=== PATIENT | male | born 1945 | race Caucasian/White ===

== ENCOUNTER 2018-11-24 14:45 | Inpatient (IN) | payer OTHER ==
[~2018-11-24] VITALS: Ht 172.7 cm; Wt 40.0 kg
[2018-11-24] MEDS ORDERED: IV NORMAL SALINE 1000ML BAG 1,000 ML IV ONE (15:45)
[2018-11-24 15:48] LABS: BASO % 0 % (0-3); EOS % 0 % (0-3); HEMATOCRIT 51.7 % (39.0-53.0); HEMOGLOBIN 16.6 g/dL (13.0-17.5); LYMPH # 0.7 x10^3/uL (1.0-4.8); LYMPH % 6 % (24-48); MEAN CORPUSCULAR HEMOGLOBIN 31 pg (25-35); MEAN CORPUSCULAR HGB CONC 32 g/dL (31-37); MEAN CORPUSCULAR VOLUME 95 fL (79-100); MONO # 0.5 x10^3/uL (0.0-1.1); MONO % 4 % (0-9); NEUT # 10.2 x10^3uL (1.8-7.7); NEUT % 90 % (31-73); PLATELET COUNT 155 x10^3/uL (140-400); RED BLOOD COUNT 5.44 x10^6/uL (4.30-5.70); RED CELL DISTRIBUTION WIDTH 15.7 % (11.5-14.5); WHITE BLOOD COUNT 11.3 x10^3/uL (4.0-11.0)
--- NOTE | 2018-11-24 15:49 | PHYS DOC ---
Adult General Chief Complaint Chief Complaint: SHORTNESS OF BREATH HPI HPI 73-year-old male presents to ER via POV with his family for complaints of shortness of air and trouble swallowing. Patient is O2 dependent and in the past week he reports he is increasingly became more short of air. Patient's primary care physician Dr. green had called and informed this provider that patient has history of COPD and had an EGD done [address] Forde and had esophageal stretching. Patient and his family reports following that procedure patient developed some swelling around his trachea and patient has had increased diff iculty swallowing. Over the past several days patient has been unable to drink ensure per his sister who is at bedside. Patient's primary care physician reported patient was seen at his office 2 weeks ago for upper respiratory infection and had been on doxycycline and prednisone. Patient states he took his last antibiotic on Thursday. Patient reports he has had intermittent cough. He denies fever. He reports he has been having less urine output and minimal stool since his appetite has been decreased. Patient denies. Patient's family reports patient has had significant weight loss since late fall. With patient's primary care physician reporting at least a 15 pound weight loss since August. As he is a daily smoker. Review of Systems Review of Systems Constitutional: Denies fever or chills. Reports generalized weakness Eyes: Denies change in visual acuity, redness, or eye pain [] HENT: Denies nasal congestion or sore throat [] Respiratory: Reports intermittent nonproductive cough and throat pain. He reports difficulty swallowing following EGD approximately 6 weeks ago which has been gradually worsening. Cardiovascular: Denies chest pain or palpitations GI: Denies abdominal pain, nausea, vomiting, bloody stools or diarrhea [] : Denies dysuria or hematuria [] Musculoskeletal: Denies back pain or joint pain [] Integument: Denies rash or skin lesions [] Neurologic: Denies headache, focal weakness or sensory changes [] Endocrine: Denies polyuria or polydipsia [] All other systems were reviewed and found to be within normal limits, except as documented in this note. Current Medications Current Medications Current Medications Medications (Trade) Dose Ordered Sig/Talya Start Time Stop Time Status Last Admin Dose Admin Sodium Chloride 1,000 ml @ 1,000 mls/hr 1X ONCE 11/24/18 15:45 11/24/18 16:44 DC 11/24/18 16:04 1,000 MLS/HR Allergies Allergies Allergies Coded Allergies Type Severity Reaction Last Updated Verified Penicillins Allergy Intermediate HIVES 11/24/18 Yes Physical Exam Physical Exam Constitutional: Frail/emaciated appearance, no acute distress, non-toxic appearance. Difficult to understand patient as his voice is muffled. Patient is answering questions appropriately HENT: Normocephalic, atraumatic, bilateral ears normal, his membranes pale and dry, no oral exudates- no pharyngeal swelling, nose normal. [] Eyes: PERRLA, no nystagmus, conjunctiva normal, no discharge. [] Neck: Normal range of motion Cardiovascular: Heart rate regular rhythm, no murmur [] Lungs & Thorax: Bilateral breath sounds clear to auscultation and upper bilateral lobes. Patient has diminished air movement throughout all lung romero with less movement in bases. Respirations are equal and nonlabored. Patient is on oxygen via nasal cannula at time of arrival. Abdomen: Bowel sounds hypoactive, soft, no tenderness, no masses, no pulsatile masses. [] Skin: Warm, cool, no erythema, no rash. [] Back: No tenderness, no CVA tenderness. [] Extremities: No tenderness, no cyanosis, no clubbing, ROM intact- slow purposeful movements, no edema. [] Neurologic: Alert and oriented X 3, normal motor function, normal sensory function, no focal deficits noted. [] Psychologic: Affect normal, judgement normal, mood normal. [] Current Patient Data Vital Signs Vital Signs Date Time Temp Pulse Resp B/P (MAP) Pulse Ox O2 Delivery O2 Flow Rate FiO2 11/24/18 17:00 86 155/78 (103) 100 Nasal Cannula 1.5 11/24/18 14:45 97.7 36 97.7 Lab Values Laboratory Tests Test 11/24/18 15:05 White Blood Count 11.3 x10^3/uL (4.0-11.0) H Red Blood Count 5.44 x10^6/uL (4.30-5.70) Hemoglobin 16.6 g/dL (13.0-17.5) Hematocrit 51.7 % (39.0-53.0) Mean Corpuscular Volume 95 fL (79-100) Mean Corpuscular Hemoglobin 31 pg (25-35) Mean Corpuscular Hemoglobin Concent 32 g/dL (31-37) Red Cell Distribution Width 15.7 % (11.5-14.5) H Platelet Count 155 x10^3/uL (140-400) Neutrophils (%) (Auto) 90 % (31-73) H Lymphocytes (%) (Auto) 6 % (24-48) L Monocytes (%) (Auto) 4 % (0-9) Eosinophils (%) (Auto) 0 % (0-3) Basophils (%) (Auto) 0 % (0-3) Neutrophils # (Auto) 10.2 x10^3uL (1.8-7.7) H Lymphocytes # (Auto) 0.7 x10^3/uL (1.0-4.8) L Monocytes # (Auto) 0.5 x10^3/uL (0.0-1.1) Eosinophils # (Auto) 0.0 x10^3/uL (0.0-0.7) Basophils # (Auto) 0.0 x10^3/uL (0.0-0.2) Segmented Neutrophils % 85 % (35-66) H Band Neutrophils % 2 % (0-9) Lymphocytes % 8 % (24-48) L Monocytes % 5 % (0-10) Platelet Estimate Adequate (ADEQUATE) Sodium Level 140 mmol/L (136-145) Potassium Level 5.0 mmol/L (3.5-5.1) Chloride Level 95 mmol/L (98-107) L Carbon Dioxide Level 40 mmol/L (21-32) H Anion Gap 5 (6-14) L Blood Urea Nitrogen 35 mg/dL (8-26) H Creatinine 1.0 mg/dL (0.7-1.3) Estimated GFR (Cockcroft-Gault) 73.2 BUN/Creatinine Ratio 35 (6-20) H Glucose Level 125 mg/dL (70-99) H Lactic Acid Level 2.9 mmol/L (0.4-2.0) H Calcium Level 13.6 mg/dL (8.5-10.1) *H Magnesium Level 2.5 mg/dL (1.8-2.4) H Total Bilirubin 0.7 mg/dL (0.2-1.0) Aspartate Amino Transferase (AST) 29 U/L (15-37) Alanine Aminotransferase (ALT) 25 U/L (16-63) Alkaline Phosphatase 105 U/L (46-116) Troponin I Quantitative 0.017 ng/mL (0.000-0.055) Total Protein 8.6 g/dL (6.4-8.2) H Albumin 3.7 g/dL (3.4-5.0) Albumin/Globulin Ratio 0.8 (1.0-1.7) L Laboratory Tests 11/24/18 15:05 Laboratory Tests 11/24/18 15:05 Microbiology 11/24/18 Blood Culture - Final, Complete NO GROWTH AFTER 5 DAYS Microbiology 11/24/18 Blood Culture - Final, Complete NO GROWTH AFTER 5 DAYS EKG EKG EKG obtained 11/24/18 at 1611 Interpreted by ER physician Sinus rhythm Rtward axis Nonspec. ST-T wave abnorm. Rate 82 No STEMI Radiology/Procedures Radiology/Procedures PROCEDURE: CHEST AP ONLY EXAM: Chest, single view. HISTORY: Shortness of air. COMPARISON: None. FINDINGS: A frontal view of the chest is obtained. There is hyperinflation and hyperlucency due to emphysema. There is blunting of the costophrenic angles likely due to large lung volumes and basilar pleural-parenchymal scarring. There is suspected superimposed left lower lobe interstitial infiltrate. There is a small ill-defined opacity overlying the left upper lobe. The heart is normal in size. IMPRESSION: 1. Suspected left lower lobe interstitial infiltrate. 2. Emphysema with suspected bilateral basilar pleural-parenchymal scarring. 3. Small opacity overlying the left upper lobe, possibly due to focal infiltrate or overlying artifact. Short-term radiographic follow-up is recommended to exclude a noncalcified nodule in this location. Electronically signed by: Denia Enrique MD (11/24/2018 3:49 PM) [place] [id number] DICTATED and SIGNED BY: DENIA ENRIQUE MD DATE: 11/24/18 1549 PROCEDURE: CT SOFT TISSUE NECK W/CONTRAST EXAM: CT neck soft tissue with contrast CLINICAL HISTORY: dysphagia s/p esophageal dilatation COMPARISON: None available. TECHNIQUE: Helical CT of the neck was performed following the administration of IV contrast. Axial coronal and sagittal reformatted images were generated. PQRS compliance statement - One or more of the following individualized dose reduction techniques were utilized for this study: 1. Automated exposure control 2. Adjustment of the mA and/or kV according to patient size 3. Use of iterative reconstruction technique FINDINGS: Exam is limited given lack of fat and diffuse soft tissue edema. Images through the skull base and cavernous sinuses are unremarkable. The orbits are unremarkable. The paranasal sinuses and mastoid air cells are unremarkable. The nasopharynx, oral pharynx and oral cavity including the floor of the mouth and tongue are unremarkable. There is diffuse soft tissue thickening of the level of the hypopharynx and larynx, most prominent level of the vocal cords, possibly from malignancy or edema. This is soft tissue swelling is eccentric to the right, extending just above the calcified thyroid cartilage. No definite extraluminal gas is identified. The parotid and submandibular glands are atrophic. The thyroid gland is unremarkable. The carotid arteries and jugular veins are patent. Given the diffuse soft tissue prominence, evaluation for lymphadenopathy is limited. Within these constraints no obvious lymphadenopathy. Multilevel degenerative changes of the spine are seen. IMPRESSION: Diffuse soft tissue thickening within the hypopharynx and larynx most prominent at the level of the vocal cords possibly from malignancy or associated edema. No extraluminal gas is seen to suggest perforation. Electronically signed by: Julius Rodriguez MD (11/24/2018 6:25 PM) [facility] DICTATED and SIGNED BY: JULIUS RODRIGUEZ MD DATE: 11/24/18 1825 PROCEDURE: CT ANGIOGRAPHY CHEST s EXAM: CT chest with contrast - pulmonary embolus protocol CLINICAL HISTORY: soa, [id number] 75ml, no priors. COMPARISON: None. TECHNIQUE: CT of the chest following the administration of intravenous contrast during the pulmonary arterial phase. Axial, coronal and sagittal reformatted images were generated including MIP images. ---PQRS compliance statement - One or more of the following individualized dose reduction techniques were utilized for this study: 1. Automated exposure control 2. Adjustment of the mA and/or kV according to patient size 3. Use of iterative reconstruction technique--- FINDINGS: CHEST: Diagnostic quality: Adequate. Pulmonary emboli: None seen Right heart strain: None Pulmonary arteries: Normal in caliber. The heart is not enlarged. No pericardial effusion. Coronary artery calcifications are seen. No pleural effusion or pneumothorax. Advanced bilateral emphysematous changes are seen. Left lower lobe airspace opacities are seen, favor infectious/odontoid process. A spiculated left upper lobe lung nodule is seen measuring 1.2 cm. A 1.4 x 1.1 cm pretracheal lymph node is seen. Bilateral prominent and borderline enlarged mediastinal and hilar lymph nodes are seen. There is opacification of the right lower lobar and segmental airways. Visualized Upper abdomen: Evaluation is limited given lack of visceral fat. In general, the visualized upper abdomen is grossly unremarkable. Bones: Evaluation of the osseous structures is limited given MIP reconstructions. Within these constraints no aggressive osseous lesion. Multilevel degenerative changes. IMPRESSION: 1. No evidence for acute pulmonary embolus. 2. Left lower lobe airspace opacities are seen, favor developing consolidative process such as pneumonia. 3. Spiculated left upper lobe lung nodule measures 1.2 cm. Recommend comparison to prior imaging if available. Otherwise this can be further assessed by PET CT if clinically indicated. 4. Advanced bilateral emphysematous changes are seen. Electronically signed by: Julius Rodriguez MD (11/24/2018 6:33 PM) [facility] DICTATED and SIGNED BY: JULIUS RODRIGUEZ MD DATE: 11/24/181832 Course & Med Decision Making Course & Med Decision Making Pertinent Labs and Imaging studies reviewed. (See chart for details) Patient was evaluated in the ER for shortness of air and difficulty swallowing. Patient is being admitted to the hospitalist services for further care and evaluation. Patient had reports of significant weight loss and reports in the past few days his shortness of air has increasingly worsened. Patient is O2 dependent with history of COPD. Patient's primary care physician had called prior to patient arriving to ER placing concerns for possible cancer with patient's symptoms and ongoing worsening of patient's condition. Chest x-ray was obtained with noted left lower lobe infiltrate. Patient had lactic acid of 2.9 WBCs were 11.3 with 2 bands. Patient's calcium was elevated at 13.6. EKG with no acute ST elevation or STEMI and troponin was <0.017. Blood cultures were obtained and patient was started on vancomycin and Levaquin while in the ER for sepsis. Patient denies any recent hospitalizations. Pt also received 1 L of fluid while in the ER and was started on maintenance IV fluids. 1710: Spoke with Dr. Davila, hospitalist and discussed pt's case and admit plan. Per his request will consult Dr. Lee with admit orders. Discussion had with patient and his family and patient is requesting DNR status with admit orders. Patient's vital signs have remained stable while in the ER pt was afebrile. CT neck results with "Diffuse soft tissue thickening within the hypopharynx and larynx most prominent at the level of the vocal cords possibly from malignancy or associated edema. No extraluminal gas is seen to suggest perforation". CTA chest neg. for PE- report of spiculated lt upper lobe lung nodule noted. CT findings were discussed with Dr. Davila. Dragon Disclaimer Dragon Disclaimer This electronic medical record was generated, in whole or in part, using a voice recognition dictation system. Departure Departure Impression: Primary Impression: Shortness of breath Additional Impressions: Weakness Sepsis Pulmonary infiltrate Disposition: ADMITTED INPATIENT Admitting Physician: Escobar Davila Condition: STABLE Referrals: AMILCAR HUANG MD (PCP) Problem Qualifiers MOISES HORNER APRN Nov 24, 2018 15:49
--- NOTE | 2018-11-24 15:52 | RAD ---
EXAM: Chest, single view. HISTORY: Shortness of air. COMPARISON: None. FINDINGS: A frontal view of the chest is obtained. There is hyperinflation and hyperlucency due to emphysema. There is blunting of the costophrenic angles likely due to large lung volumes and basilar pleural-parenchymal scarring. There is suspected superimposed left lower lobe interstitial infiltrate. There is a small ill-defined opacity overlying the left upper lobe. The heart is normal in size. IMPRESSION: 1. Suspected left lower lobe interstitial infiltrate. 2. Emphysema with suspected bilateral basilar pleural-parenchymal scarring. 3. Small opacity overlying the left upper lobe, possibly due to focal infiltrate or overlying artifact. Short-term radiographic follow-up is recommended to exclude a noncalcified nodule in this location. Electronically signed by: Denia Urban MD (11/24/2018 3:49 PM) [place] [id number]
[2018-11-24 16:05] LABS: ALBUMIN 3.7 g/dL (3.4-5.0); ALBUMIN/GLOBULIN RATIO 0.8 (1.0-1.7); GFR 73.2; MAGNESIUM 2.5 mg/dL (1.8-2.4); TOTAL BILIRUBIN 0.7 mg/dL (0.2-1.0); TOTAL PROTEIN 8.6 g/dL (6.4-8.2)
[2018-11-24 16:20] LABS: CALCIUM 13.6 mg/dL (8.5-10.1)
[2018-11-24 17:04] LABS: % BANDS 2 % (0-9); % LYMPHS 8 % (24-48); % MONOS 5 % (0-10); % SEGS 85 % (35-66)
[2018-11-24 17:05] LABS: PLT ESTIMATE ADEQUATE (ADEQUATE)
[2018-11-24] MEDS ORDERED: VANCOMYCIN 1GM IVPB FOR OMNI 250 ML IV ONE (17:30)
[2018-11-24] MEDS ORDERED: CONTRAST GIVEN. MC PRN (17:45)
[2018-11-24] MEDS ORDERED: IOHEXOL 350 MG/ML 100 ML VIAL. IV ONE (17:45)
--- NOTE | 2018-11-24 18:28 | RAD ---
EXAM: CT neck soft tissue with contrast CLINICAL HISTORY: dysphagia s/p esophageal dilatation COMPARISON: None available. TECHNIQUE: Helical CT of the neck was performed following the administration of IV contrast. Axial coronal and sagittal reformatted images were generated. PQRS compliance statement - One or more of the following individualized dose reduction techniques were utilized for this study: 1. Automated exposure control 2. Adjustment of the mA and/or kV according to patient size 3. Use of iterative reconstruction technique FINDINGS: Exam is limited given lack of fat and diffuse soft tissue edema. Images through the skull base and cavernous sinuses are unremarkable. The orbits are unremarkable. The paranasal sinuses and mastoid air cells are unremarkable. The nasopharynx, oral pharynx and oral cavity including the floor of the mouth and tongue are unremarkable. There is diffuse soft tissue thickening of the level of the hypopharynx and larynx, most prominent level of the vocal cords, possibly from malignancy or edema. This is soft tissue swelling is eccentric to the right, extending just above the calcified thyroid cartilage. No definite extraluminal gas is identified. The parotid and submandibular glands are atrophic. The thyroid gland is unremarkable. The carotid arteries and jugular veins are patent. Given the diffuse soft tissue prominence, evaluation for lymphadenopathy is limited. Within these constraints no obvious lymphadenopathy. Multilevel degenerative changes of the spine are seen. IMPRESSION: Diffuse soft tissue thickening within the hypopharynx and larynx most prominent at the level of the vocal cords possibly from malignancy or associated edema. No extraluminal gas is seen to suggest perforation. soft tissue Electronically signed by: Julius Rangel MD (11/24/2018 6:25 PM) [facility]
[2018-11-24] MEDS ORDERED: IPRATRPIUM/ALBUTEROL 0.5/2.5MG 3 ML NEBU. NEB ONE (18:30)
--- NOTE | 2018-11-24 18:36 | RAD ---
s EXAM: CT chest with contrast - pulmonary embolus protocol CLINICAL HISTORY: soa, [id number] 75ml, no priors. COMPARISON: None. TECHNIQUE: CT of the chest following the administration of intravenous contrast during the pulmonary arterial phase. Axial, coronal and sagittal reformatted images were generated including MIP images. ---PQRS compliance statement - One or more of the following individualized dose reduction techniques were utilized for this study: 1. Automated exposure control 2. Adjustment of the mA and/or kV according to patient size 3. Use of iterative reconstruction technique--- FINDINGS: CHEST: Diagnostic quality: Adequate. Pulmonary emboli: None seen Right heart strain: None Pulmonary arteries: Normal in caliber. The heart is not enlarged. No pericardial effusion. Coronary artery calcifications are seen. No pleural effusion or pneumothorax. Advanced bilateral emphysematous changes are seen. Left lower lobe airspace opacities are seen, favor infectious/odontoid process. A spiculated left upper lobe lung nodule is seen measuring 1.2 cm. A 1.4 x 1.1 cm pretracheal lymph node is seen. Bilateral prominent and borderline enlarged mediastinal and hilar lymph nodes are seen. There is opacification of the right lower lobar and segmental airways. Visualized Upper abdomen: Evaluation is limited given lack of visceral fat. In general, the visualized upper abdomen is grossly unremarkable. Bones: Evaluation of the osseous structures is limited given MIP reconstructions. Within these constraints no aggressive osseous lesion. Multilevel degenerative changes. IMPRESSION: 1. No evidence for acute pulmonary embolus. 2. Left lower lobe airspace opacities are seen, favor developing consolidative process such as pneumonia. 3. Spiculated left upper lobe lung nodule measures 1.2 cm. Recommend comparison to prior imaging if available. Otherwise this can be further assessed by PET CT if clinically indicated. 4. Advanced bilateral emphysematous changes are seen. Electronically signed by: Julius Rangel MD (11/24/2018 6:33 PM) [facility]
[2018-11-24 19:50] VITALS: BP 150/84
[2018-11-24] MEDS: IV NORMAL SALINE 1000ML BAG 1,000 ML IV SCH (20:08)
[2018-11-24] MEDS: VANCOMYCIN PER PHARMACY MC PRN (20:27)
--- NOTE | 2018-11-24 20:33 | NUR ---
Pharmacy Vancomycin Dosing Note S:Consulted to monitor and dose vancomycin started 11/24/18. O:RADHA WARREN is a 73 year old M with pneumonia. Height: 5 feet, 8 inches Weight: 38.6 kg Dosing Weight: Actual Other Antibiotics: LEVAQUIN 750 MG IV X 1 DOSE LABS: Last BUN: 35 Last Creatinine: 1.0 Creatinine Clearance: 35 mL/min Last WBC: 11.3 Last Procalcitonin: on order Tmax (past 24 hours): 97.7 Microbiology: BLOOD CX PENDING I/O: 1150/- A: Patient requires vancomycin for possible pneumonia, goal trough 15-20 mcg/ml. Patient's SCr is 1.0 with an eCrCl of 35 ml/min. Initiate the following: P: 1. Initiate Vancomycin 1000 mg IV x 1 dose, then 500 mg IV q24h 2. Follow up Trough level on 11/26/18 at 2000 3. Pharmacy will continue to monitor, follow and adjust therapy as needed. TRISTAN ADORNO [facility], 11/24/18 [id number]
--- NOTE | 2018-11-24 21:18 | HP ---
ADMIT DATE: 11/24/2018 CHIEF COMPLAINT: Throat much but neck mass, shortness of breath and weight loss. HISTORY OF PRESENT ILLNESS: The patient is a pleasant 73-year-old male who smoked up until a week ago. 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 He apparently had a procedure a month ago by Dr. Cochran of the GI service and what they did it sounds like an esophageal dilatation. Since then, he has been developing a mass on his throat. He came in today short of breath. The CAT scan of the neck shows some hypopharynx soft tissue thickening with possible malignancy. Interestingly, the CAT scan of his chest also shows a left upper lobe spiculated mass 1.2 cm and I suspect he has got underlying cancer. He does have a calcium level of 13.5, which would go along with a possible malignancy. 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 The patient has been admitted. We are going to consult Pulmonary and I am going to consult Interventional Radiology to consider a couple of biopsies if possible. PAST MEDICAL HISTORY: Tobacco abuse. ALLERGIES: PENICILLIN. FAMILY HISTORY: Lot of cancer in the family. SOCIAL HISTORY: He used to smoke. He quit a week ago. No drink or drugs. 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 MEDICATIONS: Reviewed, please refer to the MRAD. REVIEW OF SYSTEMS: GENERAL: No history of weight change, weakness or fevers. SKIN: No bruising, hair changes or rashes. EYES: No blurred, double or loss of vision. NOSE AND THROAT: No history of nosebleeds, hoarseness or sore throat. HEART: No history of palpitations, chest pain or shortness of breath on exertion. LUNGS: Denies cough, hemoptysis, wheezing or shortness of breath. GASTROINTESTINAL: Denies changes in appetite, nausea, vomiting, diarrhea or constipation. GENITOURINARY: No history of frequency, urgency, hesitancy or nocturia. NEUROLOGIC: Denies history of numbness, tingling, tremor or weakness. PSYCHIATRIC: No history of panic, anxiety or depression. ENDOCRINE: No history of heat or cold intolerance, polyuria or polydipsia. EXTREMITIES: Denies muscle weakness, joint pain, pain on walking or stiffness. PHYSICAL EXAMINATION: VITAL SIGNS: Temperature is afebrile, pulse 98, respirations 18 and blood pressure 144/90. GENERAL: He is alert and cooperative. HEART: Normal S1 and S2. LUNGS: Clear but diminished. ABDOMEN: Soft, very thin. ENDOCRINE: No thyromegaly, but he has a large mass on the anterior aspect of his pharynx. LYMPHATICS: No cervical chain nodes were noted. HEMATOPOIETIC: No bruising. PSYCHIATRIC: He seems anxious. LABORATORY DATA: White count is 11, hemoglobin 16.6 and platelets 155. Electrolytes: Sodium 140, potassium 5, chloride 95, bicarbonate 40, BUN 35, creatinine 1, glucose 125 and calcium is 13.5. RADIOLOGICAL DATA: Chest x-ray shows a left lower lobe pneumonia versus a mass, but the CT shows left upper lobe spiculated mass 1.[address] of the neck shows hypopharynx soft tissue thickening, questionable malignancy. ASSESSMENT AND PLAN: Weight loss, pharyngeal mass, lung mass, probable concomitant pneumonia and hypercalcemia. Prognosis is extremely guarded. For now, we are going to consult Pulmonary and Interventional Radiology and Heme-Onc. IV antibiotics, DuoNeb and home meds. Consult Interventional Radiology to hopefully get some tissue, IV fluids. PROGNOSIS: Extremely guarded. TOTAL TIME: Thirty-two minutes. ARIELLA HUFF DO DR: MAYCOL/shereen JOB#: [id number] / [id number]
[2018-11-24] MEDS ORDERED: IPRA4AER IH (22:10)
[2018-11-24 22:57] VITALS: BP 143/73
[2018-11-25] MEDS ORDERED: PANT20TA2 PO (01:02)
[2018-11-25] MEDS ORDERED: MULT1TAB52 PO (01:02)
[2018-11-25] MEDS ORDERED: IPRA0.2S5 NEB (01:02)
[2018-11-25] MEDS ORDERED: VITA1CAP PO (01:02)
[2018-11-25] MEDS ORDERED: ATOR10TA60 PO (01:02)
[2018-11-25 02:53] VITALS: BP 133/63
--- NOTE | 2018-11-25 04:05 | EKG ---
[facility] [address] [place] [address] Test Date: 2018-11-24 Test Time: 16:11:58 Pat Name: RADHA WARREN Department: Room: 506 1 Gender: M Stunt Woman: : 1945 Requested By: MOISES HORNER Order Number: [id number] Reading MD: Lenny Alexander MD Measurements Intervals [place] Rate: 82 P: 90 TX: 134 QRS: 98 QRSD: 102 T: 66 QT: 340 QTc: 400 Interpretive Statements SINUS RHYTHM MILD RAD PROBABLE ATRIAL ENLARGEMENT CONSIDER LVH, LIMB LEAD PLACEMENT Electronically Signed On 11-28-2018 21:57:28 CDT by Lenny Alexander MD
[2018-11-25 05:18] LABS: BASO % 0 % (0-3); EOS % 0 % (0-3); HEMOGLOBIN 13.4 g/dL (13.0-17.5); LYMPH # 0.8 x10^3/uL (1.0-4.8); LYMPH % 8 % (24-48); MEAN CORPUSCULAR HEMOGLOBIN 30 pg (25-35); MEAN CORPUSCULAR HGB CONC 32 g/dL (31-37); MEAN CORPUSCULAR VOLUME 95 fL (79-100); MONO # 0.7 x10^3/uL (0.0-1.1); MONO % 7 % (0-9); NEUT # 8.9 x10^3uL (1.8-7.7); NEUT % 85 % (31-73); PLATELET COUNT 118 x10^3/uL (140-400); RED BLOOD COUNT 4.41 x10^6/uL (4.30-5.70); RED CELL DISTRIBUTION WIDTH 15.7 % (11.5-14.5); WHITE BLOOD COUNT 10.4 x10^3/uL (4.0-11.0)
[2018-11-25] MEDS: IV NORMAL SALINE 1000ML BAG 1,000 ML IV SCH ×2 (05:18→15:40)
[2018-11-25 05:35] LABS: ALBUMIN 2.7 g/dL (3.4-5.0); ALBUMIN/GLOBULIN RATIO 0.7 (1.0-1.7); CALCIUM 11.7 mg/dL (8.5-10.1); CREATININE 0.7 mg/dL (0.7-1.3); GFR 110.5; POTASSIUM 4.2 mmol/L (3.5-5.1); TOTAL BILIRUBIN 0.5 mg/dL (0.2-1.0); TOTAL PROTEIN 6.4 g/dL (6.4-8.2)
[2018-11-25 07:00] VITALS: BP 128/67
[2018-11-25] MEDS: IPRATRPIUM/ALBUTEROL 0.5/2.5MG 3 ML NEBU. NEB SCH ×3 (07:47→16:33)
[2018-11-25 11:00] VITALS: BP 145/68
--- NOTE | 2018-11-25 12:17 | PDOC ---
Provider Note Provider Note IR NOTE Imaging reviewed. There is a small spiculated nodule in the left upper lobe. The appearance is concerning for malignancy. The patient has severe bullous emphysema. There is also an possible left lower lobe pneumonia. Also found on CT was a mass like process in the neck appearing to involve the laryx and vocal cords. I am concerned that a transthoracic biopsy would be challenging and he would be at very high risk for complications such as pneumothorax, which he may not tolerate well. Also, should the patient experience significant hemoptysis during the biopsy, which is not uncommon, airway management with this laryngeal process could be difficult. Would recommend ENT evaluation of the laryngeal process as the next step . SRAVANI JUNG MD Nov 25, 2018 12:17
--- NOTE | 2018-11-25 12:32 | NUR ---
Discussed with the patient his options regarding assessment by an ENT, patient has decided he would like to see Dr. Daly with [facility] in the clinic next week instead of transferring to [facility] at this time. This telegraphic typewriter repairer will contact Dr. Daly's office and make an appointment for the patient next week.
--- NOTE | 2018-11-25 13:04 | PDOC ---
PROGRESS NOTES Chief Complaint Chief Complaint Weight loss, malnutrition, BMI 13.5 dyphagia, pharyngeal mass, lung mass, COPD, chronic hypercarbia weakness and debility Vitals Vitals Vital Signs Date Time Temp Pulse Resp B/P (MAP) Pulse Ox O2 Delivery O2 Flow Rate FiO2 11/25/18 11:34 98 Nasal Cannula 2.0 11/25/18 11:00 97.8 72 17 145/68 (93) 97.8 Physical Exam General: Alert, Oriented X3, Cooperative, No acute distress Heart: Regular rate Lungs: Clear, Wheezing Abdomen: Soft Extremities: No clubbing, No cyanosis Skin: No rashes, No breakdown Labs LABS Laboratory Tests Test 11/24/18 15:05 11/24/18 20:50 11/25/18 03:55 White Blood Count 11.3 x10^3/uL (4.0-11.0) 10.4 x10^3/uL (4.0-11.0) Red Blood Count 5.44 x10^6/uL (4.30-5.70) 4.41 x10^6/uL (4.30-5.70) Hemoglobin 16.6 g/dL (13.0-17.5) 13.4 g/dL (13.0-17.5) Hematocrit 51.7 % (39.0-53.0) 42.0 % (39.0-53.0) Mean Corpuscular Volume 95 fL (79-100) 95 fL (79-100) Mean Corpuscular Hemoglobin 31 pg (25-35) 30 pg (25-35) Mean Corpuscular Hemoglobin Concent 32 g/dL (31-37) 32 g/dL (31-37) Red Cell Distribution Width 15.7 % (11.5-14.5) 15.7 % (11.5-14.5) Platelet Count 155 x10^3/uL (140-400) 118 x10^3/uL (140-400) Neutrophils (%) (Auto) 90 % (31-73) 85 % (31-73) Lymphocytes (%) (Auto) 6 % (24-48) 8 % (24-48) Monocytes (%) (Auto) 4 % (0-9) 7 % (0-9) Eosinophils (%) (Auto) 0 % (0-3) 0 % (0-3) Basophils (%) (Auto) 0 % (0-3) 0 % (0-3) Neutrophils # (Auto) 10.2 x10^3uL (1.8-7.7) 8.9 x10^3uL (1.8-7.7) Lymphocytes # (Auto) 0.7 x10^3/uL (1.0-4.8) 0.8 x10^3/uL (1.0-4.8) Monocytes # (Auto) 0.5 x10^3/uL (0.0-1.1) 0.7 x10^3/uL (0.0-1.1) Eosinophils # (Auto) 0.0 x10^3/uL (0.0-0.7) 0.0 x10^3/uL (0.0-0.7) Basophils # (Auto) 0.0 x10^3/uL (0.0-0.2) 0.0 x10^3/uL (0.0-0.2) Segmented Neutrophils % 85 % (35-66) Band Neutrophils % 2 % (0-9) Lymphocytes % 8 % (24-48) Monocytes % 5 % (0-10) Platelet Estimate Adequate (ADEQUATE) Sodium Level 140 mmol/L (136-145) 148 mmol/L (136-145) Potassium Level 5.0 mmol/L (3.5-5.1) 4.2 mmol/L (3.5-5.1) Chloride Level 95 mmol/L (98-107) 105 mmol/L (98-107) Carbon Dioxide Level 40 mmol/L (21-32) 41 mmol/L (21-32) Anion Gap 5 (6-14) 2 (6-14) Blood Urea Nitrogen 35 mg/dL (8-26) 28 mg/dL (8-26) Creatinine 1.0 mg/dL (0.7-1.3) 0.7 mg/dL (0.7-1.3) Estimated GFR (Cockcroft-Gault) 73.2 110.5 BUN/Creatinine Ratio 35 (6-20) 40 (6-20) Glucose Level 125 mg/dL (70-99) 76 mg/dL (70-99) Lactic Acid Level 2.9 mmol/L (0.4-2.0) 1.7 mmol/L (0.4-2.0) Calcium Level 13.6 mg/dL (8.5-10.1) 11.7 mg/dL (8.5-10.1) Magnesium Level 2.5 mg/dL (1.8-2.4) Total Bilirubin 0.7 mg/dL (0.2-1.0) 0.5 mg/dL (0.2-1.0) Aspartate Amino Transf (AST/SGOT) 29 U/L (15-37) 25 U/L (15-37) Alanine Aminotransferase (ALT/SGPT) 25 U/L (16-63) 21 U/L (16-63) Alkaline Phosphatase 105 U/L (46-116) 75 U/L (46-116) Troponin I Quantitative 0.017 ng/mL (0.000-0.055) Total Protein 8.6 g/dL (6.4-8.2) 6.4 g/dL (6.4-8.2) Albumin 3.7 g/dL (3.4-5.0) 2.7 g/dL (3.4-5.0) Albumin/Globulin Ratio 0.8 (1.0-1.7) 0.7 (1.0-1.7) Procalcitonin < 0.10 ng/mL (0.00-0.10) Review of Systems Review of Systems no n.vd poor PO intake marked weakness, did not want to transfer to wheelchair to [facility], will bed transfer order PT prognosis will be more grim if his functional status is really that low Assessment and Plan Assessmemt and Plan Problems Medical Problems: (1) Pulmonary infiltrate Status: Acute (2) Sepsis Status: Acute (3) Shortness of breath Status: Acute (4) Weakness Status: Acute Comment Review of Relevant I have reviewed the following items juliet (where applicable) has been applied. Labs Laboratory Tests Test 11/24/18 15:05 11/24/18 20:50 11/25/18 03:55 White Blood Count 11.3 x10^3/uL (4.0-11.0) 10.4 x10^3/uL (4.0-11.0) Red Blood Count 5.44 x10^6/uL (4.30-5.70) 4.41 x10^6/uL (4.30-5.70) Hemoglobin 16.6 g/dL (13.0-17.5) 13.4 g/dL (13.0-17.5) Hematocrit 51.7 % (39.0-53.0) 42.0 % (39.0-53.0) Mean Corpuscular Volume 95 fL (79-100) 95 fL (79-100) Mean Corpuscular Hemoglobin 31 pg (25-35) 30 pg (25-35) Mean Corpuscular Hemoglobin Concent 32 g/dL (31-37) 32 g/dL (31-37) Red Cell Distribution Width 15.7 % (11.5-14.5) 15.7 % (11.5-14.5) Platelet Count 155 x10^3/uL (140-400) 118 x10^3/uL (140-400) Neutrophils (%) (Auto) 90 % (31-73) 85 % (31-73) Lymphocytes (%) (Auto) 6 % (24-48) 8 % (24-48) Monocytes (%) (Auto) 4 % (0-9) 7 % (0-9) Eosinophils (%) (Auto) 0 % (0-3) 0 % (0-3) Basophils (%) (Auto) 0 % (0-3) 0 % (0-3) Neutrophils # (Auto) 10.2 x10^3uL (1.8-7.7) 8.9 x10^3uL (1.8-7.7) Lymphocytes # (Auto) 0.7 x10^3/uL (1.0-4.8) 0.8 x10^3/uL (1.0-4.8) Monocytes # (Auto) 0.5 x10^3/uL (0.0-1.1) 0.7 x10^3/uL (0.0-1.1) Eosinophils # (Auto) 0.0 x10^3/uL (0.0-0.7) 0.0 x10^3/uL (0.0-0.7) Basophils # (Auto) 0.0 x10^3/uL (0.0-0.2) 0.0 x10^3/uL (0.0-0.2) Segmented Neutrophils % 85 % (35-66) Band Neutrophils % 2 % (0-9) Lymphocytes % 8 % (24-48) Monocytes % 5 % (0-10) Platelet Estimate Adequate (ADEQUATE) Sodium Level 140 mmol/L (136-145) 148 mmol/L (136-145) Potassium Level 5.0 mmol/L (3.5-5.1) 4.2 mmol/L (3.5-5.1) Chloride Level 95 mmol/L (98-107) 105 mmol/L (98-107) Carbon Dioxide Level 40 mmol/L (21-32) 41 mmol/L (21-32) Anion Gap 5 (6-14) 2 (6-14) Blood Urea Nitrogen 35 mg/dL (8-26) 28 mg/dL (8-26) Creatinine 1.0 mg/dL (0.7-1.3) 0.7 mg/dL (0.7-1.3) Estimated GFR (Cockcroft-Gault) 73.2 110.5 BUN/Creatinine Ratio 35 (6-20) 40 (6-20) Glucose Level 125 mg/dL (70-99) 76 mg/dL (70-99) Lactic Acid Level 2.9 mmol/L (0.4-2.0) 1.7 mmol/L (0.4-2.0) Calcium Level 13.6 mg/dL (8.5-10.1) 11.7 mg/dL (8.5-10.1) Magnesium Level 2.5 mg/dL (1.8-2.4) Total Bilirubin 0.7 mg/dL (0.2-1.0) 0.5 mg/dL (0.2-1.0) Aspartate Amino Transf (AST/SGOT) 29 U/L (15-37) 25 U/L (15-37) Alanine Aminotransferase (ALT/SGPT) 25 U/L (16-63) 21 U/L (16-63) Alkaline Phosphatase 105 U/L (46-116) 75 U/L (46-116) Troponin I Quantitative 0.017 ng/mL (0.000-0.055) Total Protein 8.6 g/dL (6.4-8.2) 6.4 g/dL (6.4-8.2) Albumin 3.7 g/dL (3.4-5.0) 2.7 g/dL (3.4-5.0) Albumin/Globulin Ratio 0.8 (1.0-1.7) 0.7 (1.0-1.7) Procalcitonin < 0.10 ng/mL (0.00-0.10) Laboratory Tests Test 11/24/18 15:05 11/24/18 20:50 11/25/18 03:55 White Blood Count 11.3 x10^3/uL (4.0-11.0) 10.4 x10^3/uL (4.0-11.0) Red Blood Count 5.44 x10^6/uL (4.30-5.70) 4.41 x10^6/uL (4.30-5.70) Hemoglobin 16.6 g/dL (13.0-17.5) 13.4 g/dL (13.0-17.5) Hematocrit 51.7 % (39.0-53.0) 42.0 % (39.0-53.0) Mean Corpuscular Volume 95 fL (79-100) 95 fL (79-100) Mean Corpuscular Hemoglobin 31 pg (25-35) 30 pg (25-35) Mean Corpuscular Hemoglobin Concent 32 g/dL (31-37) 32 g/dL (31-37) Red Cell Distribution Width 15.7 % (11.5-14.5) 15.7 % (11.5-14.5) Platelet Count 155 x10^3/uL (140-400) 118 x10^3/uL (140-400) Neutrophils (%) (Auto) 90 % (31-73) 85 % (31-73) Lymphocytes (%) (Auto) 6 % (24-48) 8 % (24-48) Monocytes (%) (Auto) 4 % (0-9) 7 % (0-9) Eosinophils (%) (Auto) 0 % (0-3) 0 % (0-3) Basophils (%) (Auto) 0 % (0-3) 0 % (0-3) Neutrophils # (Auto) 10.2 x10^3uL (1.8-7.7) 8.9 x10^3uL (1.8-7.7) Lymphocytes # (Auto) 0.7 x10^3/uL (1.0-4.8) 0.8 x10^3/uL (1.0-4.8) Monocytes # (Auto) 0.5 x10^3/uL (0.0-1.1) 0.7 x10^3/uL (0.0-1.1) Eosinophils # (Auto) 0.0 x10^3/uL (0.0-0.7) 0.0 x10^3/uL (0.0-0.7) Basophils # (Auto) 0.0 x10^3/uL (0.0-0.2) 0.0 x10^3/uL (0.0-0.2) Segmented Neutrophils % 85 % (35-66) Band Neutrophils % 2 % (0-9) Lymphocytes % 8 % (24-48) Monocytes % 5 % (0-10) Platelet Estimate Adequate (ADEQUATE) Sodium Level 140 mmol/L (136-145) 148 mmol/L (136-145) Potassium Level 5.0 mmol/L (3.5-5.1) 4.2 mmol/L (3.5-5.1) Chloride Level 95 mmol/L (98-107) 105 mmol/L (98-107) Carbon Dioxide Level 40 mmol/L (21-32) 41 mmol/L (21-32) Anion Gap 5 (6-14) 2 (6-14) Blood Urea Nitrogen 35 mg/dL (8-26) 28 mg/dL (8-26) Creatinine 1.0 mg/dL (0.7-1.3) 0.7 mg/dL (0.7-1.3) Estimated GFR (Cockcroft-Gault) 73.2 110.5 BUN/Creatinine Ratio 35 (6-20) 40 (6-20) Glucose Level 125 mg/dL (70-99) 76 mg/dL (70-99) Lactic Acid Level 2.9 mmol/L (0.4-2.0) 1.7 mmol/L (0.4-2.0) Calcium Level 13.6 mg/dL (8.5-10.1) 11.7 mg/dL (8.5-10.1) Magnesium Level 2.5 mg/dL (1.8-2.4) Total Bilirubin 0.7 mg/dL (0.2-1.0) 0.5 mg/dL (0.2-1.0) Aspartate Amino Transf (AST/SGOT) 29 U/L (15-37) 25 U/L (15-37) Alanine Aminotransferase (ALT/SGPT) 25 U/L (16-63) 21 U/L (16-63) Alkaline Phosphatase 105 U/L (46-116) 75 U/L (46-116) Troponin I Quantitative 0.017 ng/mL (0.000-0.055) Total Protein 8.6 g/dL (6.4-8.2) 6.4 g/dL (6.4-8.2) Albumin 3.7 g/dL (3.4-5.0) 2.7 g/dL (3.4-5.0) Albumin/Globulin Ratio 0.8 (1.0-1.7) 0.7 (1.0-1.7) Procalcitonin < 0.10 ng/mL (0.00-0.10) Medications Current Medications Sodium Chloride 1,000 ml @ 1,000 mls/hr 1X ONCE IV Last administered on at 16:04; Start 11/24/18 at 15:45; Stop 11/24/18 at 16:44; Status DC Vancomycin HCl (Vanco Per Pharmacy) 1 each PRN DAILY PRN MC SEE COMMENTS Last administered on 11/24/18at 20:27; Start 11/24/18 at 17:30 Levofloxacin/ Dextrose 150 ml @ 100 mls/hr 1X ONCE IV Last administered on at 18:10; Start 11/24/18 at 17:30; Stop 11/24/18 at 18:59; Status DC Vancomycin HCl 250 ml @ 250 mls/hr 1X ONCE IV Last administered on 11/24/18at 20:08; Start 11/24/18 at 17:30; Stop 11/24/18 at 18:29; Status DC Iohexol (Omnipaque 350 Mg/ml) 75 ml 1X ONCE IV Last administered on 11/24/18at 18:00; Start 11/24/18 at 17:45; Stop 11/24/18 at 17:46; Status DC Info (CONTRAST GIVEN -- Rx MONITORING) 1 each PRN DAILY PRN MC SEE COMMENTS; Start 11/24/18 at 17:45; Stop 11/26/18 at 17:44 Albuterol/ Ipratropium (Duoneb) 3 ml 1X ONCE NEB Last administered on at 18:30; Start 11/24/18 at 18:30; Stop 11/24/18 at 18:31; Status DC Sodium Chloride 1,000 ml @ 100 mls/hr Q10H IV Last administered on 11/25/18at 05:18; Start 11/24/18 at 18:48; Stop 11/25/18 at 18:47 Albuterol/ Ipratropium (Duoneb) 3 ml RTQID NEB Last administered on 11/25/18at 11:33; Start 11/24/18 at 20:00; Stop 11/25/18 at 19:59 Vancomycin HCl 500 mg/Sodium Chloride 100 ml @ 100 mls/hr Q24H IV ; Start 11/25 at 20:30 Vancomycin HCl (Vancomycin Trough Level) 1 each 1X ONCE MC ; Start 11/26/18 at 20:00; Stop 11/26/18 at 20:01 Budesonide (Pulmicort) 0.5 mg RTBID NEB ; Start 11/25/18 at 20:00 Active Scripts Active Reported Protonix (Pantoprazole Sodium) 20 Mg Tablet.dr 40 Mg PO DAILY Ipratropium [place] 0.2 Mg/1 Ml Solution 1 Vial NEB QID Vitamin B Complex 1 Each Capsule 1 Each PO DAILY Multivitamins (Multivitamin) 1 Each Tablet 1 Tab PO DAILY Atorvastatin Calcium 10 Mg Tablet 1 Tab PO DAILY Combivent Respimat Inhal (Ipratropium/Albuterol Sulfate) 4 Gm Aer.w.adap Unknown Dose IH QID 2 puffs 4 times per day Vitals/I & O Vital Sign - Last 24 Hours 11/24/18 11/24/18 11/24/18 11/24/18 14:45 15:30 16:00 16:30 Temp 97.7 97.7 Pulse 87 88 86 80 Resp 36 B/P (MAP) 119/70 (86) 130/78 (95) 136/83 (100) 149/79 (102) Pulse Ox 100 100 100 100 O2 Delivery Nasal Cannula Nasal Cannula Nasal Cannula Nasal Cannula O2 Flow Rate 1.5 1.5 1.5 1.5 11/24/18 11/24/18 11/24/18 11/24/18 17:00 17:30 18:30 19:37 Pulse 86 86 86 Resp 43 B/P (MAP) 155/78 (103) 125/72 (89) 118/71 (87) Pulse Ox 100 100 100 97 O2 Delivery Nasal Cannula Nasal Cannula Nasal Cannula Nasal Cannula O2 Flow Rate 1.5 1.5 3.0 1.5 11/24/18 11/24/18 11/24/18 11/24/18 19:50 20:00 20:03 22:57 Temp 97.8 97.8 Pulse 93 95 Resp 18 18 B/P (MAP) 150/84 (106) 143/73 (96) Pulse Ox 95 94 92 O2 Delivery Nasal Cannula Nasal Cannula Room Air O2 Flow Rate 2.0 1.5 2.0 2.0 11/25/18 11/25/18 11/25/18 11/25/18 02:53 07:00 07:47 08:00 Temp 97.8 97.6 97.8 97.6 Pulse 74 75 Resp 22 17 B/P (MAP) 133/63 (86) 128/67 (87) Pulse Ox 98 95 98 O2 Delivery Nasal Cannula Nasal Cannula Nasal Cannula O2 Flow Rate 2.0 2.0 2.0 2.0 11/25/18 11/25/18 11:00 11:34 Temp 97.8 97.8 Pulse 72 Resp 17 B/P (MAP) 145/68 (93) Pulse Ox 94 98 O2 Delivery Nasal Cannula Nasal Cannula O2 Flow Rate 2.0 2.0 Intake and Output 11/24/18 11/24/18 11/25/18 14:59 22:59 06:59 Intake Total 1150 ml Output Total 750 ml Balance 1150 ml -750 ml RADHA PINTO MD Nov 25, 2018 13:04
[2018-11-25] MEDS: VANCOMYCIN PER PHARMACY MC PRN (13:23)
--- NOTE | 2018-11-25 14:20 | RAD ---
Radionuclide bone scan, 11/25/2018: HISTORY: Hypercalcemia, weight loss, lung nodule Whole-body imaging was performed following IV injection of 25.5 mCi of technetium 99m MDP. No previous bone scan is available at this time for comparison purposes. The following findings are delineated: 1. There is mildly increased activity at both shoulders, elbows, sternoclavicular articulations, knees and feet in a fairly symmetric pattern compatible with arthritis. 2. Activity of the radionuclide about the skeleton is otherwise unremarkable. 3. Normal activity is present in both kidneys and the bladder. IMPRESSION: 1. Scattered arthritic changes. 2. No bone scan findings to suggest osseous metastatic disease. Electronically signed by: Juan Carlos Coombs MD (11/25/2018 2:18 PM) [facility]
[2018-11-25 15:00] VITALS: BP 128/69
--- NOTE | 2018-11-25 15:29 | PDOC ---
PULMONARY PROGRESS NOTES Vitals Vital Signs Date Time Temp Pulse Resp B/P (MAP) Pulse Ox O2 Delivery O2 Flow Rate FiO2 11/25/18 11:34 98 Nasal Cannula 2.0 11/25/18 11:00 97.8 72 17 145/68 (93) 97.8 Lungs: Clear, Wheezing Labs Laboratory Tests Test 11/24/18 15:05 11/24/18 20:50 11/25/18 03:55 White Blood Count 11.3 x10^3/uL (4.0-11.0) 10.4 x10^3/uL (4.0-11.0) Red Blood Count 5.44 x10^6/uL (4.30-5.70) 4.41 x10^6/uL (4.30-5.70) Hemoglobin 16.6 g/dL (13.0-17.5) 13.4 g/dL (13.0-17.5) Hematocrit 51.7 % (39.0-53.0) 42.0 % (39.0-53.0) Mean Corpuscular Volume 95 fL (79-100) 95 fL (79-100) Mean Corpuscular Hemoglobin 31 pg (25-35) 30 pg (25-35) Mean Corpuscular Hemoglobin Concent 32 g/dL (31-37) 32 g/dL (31-37) Red Cell Distribution Width 15.7 % (11.5-14.5) 15.7 % (11.5-14.5) Platelet Count 155 x10^3/uL (140-400) 118 x10^3/uL (140-400) Neutrophils (%) (Auto) 90 % (31-73) 85 % (31-73) Lymphocytes (%) (Auto) 6 % (24-48) 8 % (24-48) Monocytes (%) (Auto) 4 % (0-9) 7 % (0-9) Eosinophils (%) (Auto) 0 % (0-3) 0 % (0-3) Basophils (%) (Auto) 0 % (0-3) 0 % (0-3) Neutrophils # (Auto) 10.2 x10^3uL (1.8-7.7) 8.9 x10^3uL (1.8-7.7) Lymphocytes # (Auto) 0.7 x10^3/uL (1.0-4.8) 0.8 x10^3/uL (1.0-4.8) Monocytes # (Auto) 0.5 x10^3/uL (0.0-1.1) 0.7 x10^3/uL (0.0-1.1) Eosinophils # (Auto) 0.0 x10^3/uL (0.0-0.7) 0.0 x10^3/uL (0.0-0.7) Basophils # (Auto) 0.0 x10^3/uL (0.0-0.2) 0.0 x10^3/uL (0.0-0.2) Segmented Neutrophils % 85 % (35-66) Band Neutrophils % 2 % (0-9) Lymphocytes % 8 % (24-48) Monocytes % 5 % (0-10) Platelet Estimate Adequate (ADEQUATE) Sodium Level 140 mmol/L (136-145) 148 mmol/L (136-145) Potassium Level 5.0 mmol/L (3.5-5.1) 4.2 mmol/L (3.5-5.1) Chloride Level 95 mmol/L (98-107) 105 mmol/L (98-107) Carbon Dioxide Level 40 mmol/L (21-32) 41 mmol/L (21-32) Anion Gap 5 (6-14) 2 (6-14) Blood Urea Nitrogen 35 mg/dL (8-26) 28 mg/dL (8-26) Creatinine 1.0 mg/dL (0.7-1.3) 0.7 mg/dL (0.7-1.3) Estimated GFR (Cockcroft-Gault) 73.2 110.5 BUN/Creatinine Ratio 35 (6-20) 40 (6-20) Glucose Level 125 mg/dL (70-99) 76 mg/dL (70-99) Lactic Acid Level 2.9 mmol/L (0.4-2.0) 1.7 mmol/L (0.4-2.0) Calcium Level 13.6 mg/dL (8.5-10.1) 11.7 mg/dL (8.5-10.1) Magnesium Level 2.5 mg/dL (1.8-2.4) Total Bilirubin 0.7 mg/dL (0.2-1.0) 0.5 mg/dL (0.2-1.0) Aspartate Amino Transf (AST/SGOT) 29 U/L (15-37) 25 U/L (15-37) Alanine Aminotransferase (ALT/SGPT) 25 U/L (16-63) 21 U/L (16-63) Alkaline Phosphatase 105 U/L (46-116) 75 U/L (46-116) Troponin I Quantitative 0.017 ng/mL (0.000-0.055) Total Protein 8.6 g/dL (6.4-8.2) 6.4 g/dL (6.4-8.2) Albumin 3.7 g/dL (3.4-5.0) 2.7 g/dL (3.4-5.0) Albumin/Globulin Ratio 0.8 (1.0-1.7) 0.7 (1.0-1.7) Procalcitonin < 0.10 ng/mL (0.00-0.10) Laboratory Tests Test 11/24/18 20:50 11/25/18 03:55 Lactic Acid Level 1.7 mmol/L (0.4-2.0) White Blood Count 10.4 x10^3/uL (4.0-11.0) Red Blood Count 4.41 x10^6/uL (4.30-5.70) Hemoglobin 13.4 g/dL (13.0-17.5) Hematocrit 42.0 % (39.0-53.0) Mean Corpuscular Volume 95 fL (79-100) Mean Corpuscular Hemoglobin 30 pg (25-35) Mean Corpuscular Hemoglobin Concent 32 g/dL (31-37) Red Cell Distribution Width 15.7 % (11.5-14.5) Platelet Count 118 x10^3/uL (140-400) Neutrophils (%) (Auto) 85 % (31-73) Lymphocytes (%) (Auto) 8 % (24-48) Monocytes (%) (Auto) 7 % (0-9) Eosinophils (%) (Auto) 0 % (0-3) Basophils (%) (Auto) 0 % (0-3) Neutrophils # (Auto) 8.9 x10^3uL (1.8-7.7) Lymphocytes # (Auto) 0.8 x10^3/uL (1.0-4.8) Monocytes # (Auto) 0.7 x10^3/uL (0.0-1.1) Eosinophils # (Auto) 0.0 x10^3/uL (0.0-0.7) Basophils # (Auto) 0.0 x10^3/uL (0.0-0.2) Sodium Level 148 mmol/L (136-145) Potassium Level 4.2 mmol/L (3.5-5.1) Chloride Level 105 mmol/L (98-107) Carbon Dioxide Level 41 mmol/L (21-32) Anion Gap 2 (6-14) Blood Urea Nitrogen 28 mg/dL (8-26) Creatinine 0.7 mg/dL (0.7-1.3) Estimated GFR (Cockcroft-Gault) 110.5 BUN/Creatinine Ratio 40 (6-20) Glucose Level 76 mg/dL (70-99) Calcium Level 11.7 mg/dL (8.5-10.1) Total Bilirubin 0.5 mg/dL (0.2-1.0) Aspartate Amino Transf (AST/SGOT) 25 U/L (15-37) Alanine Aminotransferase (ALT/SGPT) 21 U/L (16-63) Alkaline Phosphatase 75 U/L (46-116) Total Protein 6.4 g/dL (6.4-8.2) Albumin 2.7 g/dL (3.4-5.0) Albumin/Globulin Ratio 0.7 (1.0-1.7) Procalcitonin < 0.10 ng/mL (0.00-0.10) Medications Active Scripts Medications Dose Route/Sig Max Daily Dose Days Date Category Dose Instructions Protonix (Pantoprazole Sodium) 20 Mg Tablet.dr 40 Mg PO DAILY 11/25/18 Reported Ipratropium [place] 0.2 Mg/1 Ml Solution 1 Vial NEB QID 11/25/18 Reported Vitamin B Complex 1 Each Capsule 1 Each PO DAILY 11/25/18 Reported Multivitamins (Multivitamin) 1 Each Tablet 1 Tab PO DAILY 11/25/18 Reported Atorvastatin Calcium 10 Mg Tablet 1 Tab PO DAILY 11/25/18 Reported Combivent Respimat Inhal (Ipratropium/Albuterol Sulfate) 4 Gm Aer.w.adap Unknown Dose IH QID 11/24/18 Reported 2 puffs 4 times per day Impression . FULL NOTE DICTATED THANKS DANTE MOLINA MD Nov 25, 2018 15:29
--- NOTE | 2018-11-25 15:50 | PDOC ---
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 Presented with hoarseness, 38 pound weight loss, throat pain, impaired swallowing and fatigue. PE emaciated, hoarse no stridor, in NAD. Mass palpable around larynx which is fixed and non-mobile. No palpable LNs CT Neck bulky mass in glottic larynx with thyroid cartilage erosion. mass extends superiorly into epiglottis and vallecular space possibly involving inferior base of tongue and inferiorly into subglottis. Pinhole preserved airway. No adenopathy CT chest 1 cm spiculated PREETI nodule and atelectatic band in base. borderline adenopathy in mediastinum, prominent nodes in Lt > Rt hilar regions. Impression: st IV A bulky glottic carcinoma with impending airway compromise on CT and nutritional failure. Likely separate lung primary lesion with pneumonia with Lns likely inflammatory in source. He does desire treatment with radiation alone to the bulky larynx cancer. Dr. Lee also does not recommend chemo due to weight loss and low performance status. I would observe lung primary lesion. Code status chosen ( DNR) appropriate. Recommend eval for tracheostomy and get bx at time of trach. Also get PEG tube placed for nutritional support. Once stabilized, begin treatment. Discussed with patient, daughter, sister and Dr. Monteiro. FRANCISCO HENRY MD Nov 25, 2018 15:50
--- NOTE | 2018-11-25 15:51 | NUR ---
SW responding to referral regarding decline in ability to perform ADL's and need help at dc. Chart reviewed. Pt lives at home with spouse. SW requested for PT/OT order to assess needs. OT currently recommends SNU. Palliative care also consulted. SW will await for Palliative care recommendation regarding goals of care. Will continue to follow
--- NOTE | 2018-11-25 16:27 | PDOC2 ---
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 Imaging as below. Reports 2 months of hoarseness, throat pain, weight loss (>30 pounds), and difficulty swallowing - says no longer able to swallow Ensure but tolerates water. Saw Dr. Forde and had two EGDs w/ dilation within the past 6 weeks. Additional h /o bleeding gastric ulcer at [facility] in 01/2018 - not sure what caused his ulcer and becomes upset with his when this is discussed. No longer taking any GI type meds at home. No reflux/heartburn, nausea, abdominal pain, diarrhea, constipation (though less frequent stooling w/ decreased intake) , hematochezia, or melena. Had a colonoscopy w/ a polyp at some point. No GB, liver, or pancreas history. He desires treatment for larynx cancer. Discussion for tracheostomy and biopsy , also note IR recs for ENT eval (not available here). We were asked to see for PEG placement - family says radiation cannot begin until PEG placed. PMH: PMH: COPD, HLD, gastric ulcer appendectomy FH: Family History: No pertinent hx Social History: Smoke: Quit ALCOHOL: none Drugs: None ROS: GEN: Denies fevers, chills, sweats HEENT: +sore throat +hoarseness CV: Denies chest pain RESP: +SOA GI: Per HPI : Denies hematuria, dysuria ENDO: +weight loss NEURO: Denies confusion, dizziness MSK: +weakness SKIN: Denies jaundice, pruritus Vitals: Vitals: Vital Signs Date Time Temp Pulse Resp B/P (MAP) Pulse Ox O2 Delivery O2 Flow Rate FiO2 11/25/18 11:34 98 Nasal Cannula 2.0 11/25/18 11:00 97.8 72 17 145/68 (93) 97.8 Labs: Labs: Laboratory Tests Test 11/24/18 20:50 11/25/18 03:55 Lactic Acid Level 1.7 mmol/L (0.4-2.0) White Blood Count 10.4 x10^3/uL (4.0-11.0) Red Blood Count 4.41 x10^6/uL (4.30-5.70) Hemoglobin 13.4 g/dL (13.0-17.5) Hematocrit 42.0 % (39.0-53.0) Mean Corpuscular Volume 95 fL (79-100) Mean Corpuscular Hemoglobin 30 pg (25-35) Mean Corpuscular Hemoglobin Concent 32 g/dL (31-37) Red Cell Distribution Width 15.7 % (11.5-14.5) Platelet Count 118 x10^3/uL (140-400) Neutrophils (%) (Auto) 85 % (31-73) Lymphocytes (%) (Auto) 8 % (24-48) Monocytes (%) (Auto) 7 % (0-9) Eosinophils (%) (Auto) 0 % (0-3) Basophils (%) (Auto) 0 % (0-3) Neutrophils # (Auto) 8.9 x10^3uL (1.8-7.7) Lymphocytes # (Auto) 0.8 x10^3/uL (1.0-4.8) Monocytes # (Auto) 0.7 x10^3/uL (0.0-1.1) Eosinophils # (Auto) 0.0 x10^3/uL (0.0-0.7) Basophils # (Auto) 0.0 x10^3/uL (0.0-0.2) Sodium Level 148 mmol/L (136-145) Potassium Level 4.2 mmol/L (3.5-5.1) Chloride Level 105 mmol/L (98-107) Carbon Dioxide Level 41 mmol/L (21-32) Anion Gap 2 (6-14) Blood Urea Nitrogen 28 mg/dL (8-26) Creatinine 0.7 mg/dL (0.7-1.3) Estimated GFR (Cockcroft-Gault) 110.5 BUN/Creatinine Ratio 40 (6-20) Glucose Level 76 mg/dL (70-99) Calcium Level 11.7 mg/dL (8.5-10.1) Total Bilirubin 0.5 mg/dL (0.2-1.0) Aspartate Amino Transf (AST/SGOT) 25 U/L (15-37) Alanine Aminotransferase (ALT/SGPT) 21 U/L (16-63) Alkaline Phosphatase 75 U/L (46-116) Total Protein 6.4 g/dL (6.4-8.2) Albumin 2.7 g/dL (3.4-5.0) Albumin/Globulin Ratio 0.7 (1.0-1.7) Procalcitonin < 0.10 ng/mL (0.00-0.10) BLOOD CULTURE Preliminary NO GROWTH AFTER 1 DAY Allergies: Coded Allergies: Penicillins (Verified Allergy, Intermediate, HIVES, 11/24/18) Medications: Current Medications Medications (Trade) Dose Ordered Sig/Talya Route PRN Reason Start Time Stop Time Status Last Admin Dose Admin Vancomycin HCl (Vanco Per Pharmacy) 1 each PRN DAILY PRN MC SEE COMMENTS 11/24/18 17:30 11/25/18 15:31 DC 11/25/18 13:23 Levofloxacin/ Dextrose 150 ml @ 100 mls/hr 1X ONCE IV 11/24/18 17:30 11/24/18 18:59 DC 11/24/18 18:10 Vancomycin HCl 250 ml @ 250 mls/hr 1X ONCE IV 11/24/18 17:30 11/24/18 18:29 DC 11/24/18 20:08 Iohexol (Omnipaque 350 Mg/ml) 75 ml 1X ONCE IV 11/24/18 17:45 11/24/18 17:46 DC 11/24/18 18:00 Albuterol/ Ipratropium (Duoneb) 3 ml 1X ONCE NEB 11/24/18 18:30 11/24/18 18:31 DC 11/24/18 18:30 Sodium Chloride 1,000 ml @ 100 mls/hr Q10H IV 11/24/18 18:48 11/25/18 18:47 11/25/18 15:40 Albuterol/ Ipratropium (Duoneb) 3 ml RTQID NEB 11/24/18 20:00 11/25/18 19:59 11/25/18 11:33 Imaging: Imaging: CXR IMPRESSION: 1. Suspected left lower lobe interstitial infiltrate. 2. Emphysema with suspected bilateral basilar pleural-parenchymal scarring. 3. Small opacity overlying the left upper lobe, possibly due to focal infiltrate or overlying artifact. Short-term radiographic follow-up is recommended to exclude a noncalcified nodule in this location. Soft Tissue Neck CT IMPRESSION: Diffuse soft tissue thickening within the hypopharynx and larynx most prominent at the level of the vocal cords possibly from malignancy or associated edema. No extraluminal gas is seen to suggest perforation. Chest CTA IMPRESSION: 1. No evidence for acute pulmonary embolus. 2. Left lower lobe airspace opacities are seen, favor developing consolidative process such as pneumonia. 3. Spiculated left upper lobe lung nodule measures 1.2 cm. Recommend comparison to prior imaging if available. Otherwise this can be further assessed by PET CT if clinically indicated. 4. Advanced bilateral emphysematous changes are seen. Bone Scan IMPRESSION: 1. Scattered arthritic changes. 2. No bone scan findings to suggest osseous metastatic disease PE: GEN: emaciated HEENT: large hard mass left neck LUNGS: NC, diminished HEART: RRR ABD: hypoactive BS, S/ND/NT EXTREMITY: No edema SKIN: No rashes, no jaundice NEURO/PSYCH: A & O 3 A/P: A/P: Stage IV glottic carcinoma - "pinhole preserved airway" on CT Pneumonia, COPD Dysphagia, weight loss H/o PUD CRC screen, h/o polyps Hypercalcemia -- Will review w/ Dr. Taylor - seems pulm status would be prohibitive for sedation/ endoscopy at this point. PPI w/ PUD history. ?PPN SOFYA WELCH Nov 25, 2018 16:27
[2018-11-25] MEDS: PANTOPRAZOLE IV PUSH 40 MG VIAL. IVP SCH (17:54)
[2018-11-25 19:00] VITALS: BP 130/57
--- NOTE | 2018-11-25 19:50 | PDOC ---
Provider Note Provider Note 71 year old male with a T4 glottic/supraglottic mass. 30 lbs weight loss, cachexia. CT neck shows a bulky mass in glottic larynx with thyroid cartilage erosion. The upper airway is significantly compromised with a pinpoint size lumen. I was consulted to consider the patient for a tracheostomy. At present he has no signs or symptoms of airway compromise. In order to perform a tracheostomy, ideally would have secure the airway first with ET intubation, which currently is not possible. This would be performed by debulking the tumor with rigid bronchoscopy, connected to the ventilator, followed by tracheal intubation and finally proceed with tracheostomy. Would have to find an endoscopist comfortable performing this high risk procedure. Alternatively, can proceed with radiation treatment, anticipating that the tumor will respond and improve airway patency. A third option would be an awake tracheostomy, which is also an extremely risky procedure, but possible if needed. The main risk is the unavailability of a rigid bronchoscope, if the airway was lost. I would be happy to perform an awake tracheostomy, if it comes to that and if the patient is willing to accept the risks. ASHLYN JONES MD Nov 25, 2018 19:50
[2018-11-25] MEDS: BUDESONIDE 0.5 MG/2 ML NEBU. NEB SCH (20:03)
[2018-11-25] MEDS ORDERED: VANCOMYCIN 500 MG in IV NORMAL SALINE 100ML 100 ML IV SCH (20:30)
--- NOTE | 2018-11-25 21:56 | CONS ---
DATE OF CONSULTATION: 11/25/2018 REQUESTING PHYSICIAN: Dr. Escobar Davila. REASON FOR CONSULTATION: Lung mass and neck mass. HISTORY OF PRESENT ILLNESS: The patient is a 73-year-old gentleman who was brought into the Emergency Room on 11/24/2018 with complaints of dyspnea and difficulty swallowing. The patient is oxygen dependent and who has noted worsening shortness of breath for about one week prior to admission. The patient has a history of COPD. He had an EGD done by Dr. Forde in 10/2018 and he had esophageal stretching. He then developed swelling and a mass in his neck and he has had difficulty swallowing since then. He has also had difficulty swallowing liquids. He had upper respiratory tract infection prior to admission and he was treated with doxycycline and prednisone. He completed his course of antibiotics. He denies any fever. He reports poor appetite and weight loss of at least 20 pounds in the last 3 months prior to admission. He also mentions that his functional status has declined and he spends most of the time sitting in a chair or lying in bed. He lives with his daughter who helps him for all his needs. PAST MEDICAL HISTORY: He has a history of dysphagia and esophageal dilatation done in 10/2018. FAMILY HISTORY: Sister has cancer of unknown type. SOCIAL HISTORY: He has a history of smoking 1 to 1-1/2 packs per day since the age of 15 up until the age of 73 and he quit in 10/2018. REVIEW OF SYSTEMS: A 12-point review of system was performed. Pertinent positives are mentioned in the history of present illness. Rest of the system review is negative. PHYSICAL EXAMINATION: GENERAL APPEARANCE: The patient is a 73-year-old gentleman who is in no acute cardiorespiratory distress. VITAL SIGNS: Blood pressure 127/67, temperature 97.6. HEENT: Head is atraumatic, normocephalic. Eyes: No icterus. NECK: Supple. Anterior neck mass is noted, which appears lobulated and measures at least 6 x 6 cm. No tenderness. CHEST: Bilaterally symmetrical. HEART: S1, S2 normal. ABDOMEN: Soft, nontender. CENTRAL NERVOUS SYSTEM: No focal deficits. LYMPHATICS: No lymphadenopathy. SKIN: No rashes. PSYCHOLOGIC: Mood and affect are appropriate. MUSCULOSKELETAL: He appears cachectic. LABORATORY DATA: WBC 10.4, hemoglobin 13.4, platelet count 118, platelet count at the time of admission was normal at 155 on 11/24/2018. Creatinine 0.7, BUN 28, calcium 13.6 on 11/24/2018. Total bilirubin 0.7, AST 29, ALT 25, alkaline phosphatase of 105, total protein 8.6, albumin 3.7. IMPRESSION AND PLAN: 1. Neck mass. 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 Bulky primary disease causes significant airway narrowing. Primary lesion extends into involve the thyroid cartilage, subglottis, and supraglottic regions.Neck mass. He underwent CT scan of the soft tissue of the neck on 11/24/2018 that revealed diffuse soft tissue thickening within the hypopharynx and larynx, most prominent at the level of the vocal cords, possibly from malignancy or associated edema. No evidence of perforation. There is also a prominent mass palpable on examination in the midline region anteriorly in the neck concerning for malignancy: bulky glottic mass with erosion of the thyroid cartilage, anteriorly worse on the right side. Mass extended subglottically to the proximal trachea, mass extended superiorly to involve the epiglottis vallecular space and may involve the inferior base of tongue. No adenopathy was seen. There is also a prominent mass palpable on examination in the midline region anteriorly in the neck concerning for malignancy. I will consult ENT. I will also consult Dr. Suggs from Rad[facility]. The patient's functional status is very poor and he is not a candidate for chemotherapy. If this is proven to be malignant, then palliative radiation would be an option. There is a 1.2 cm spiculated mass noted on CT scan of the chest done on 11/24/2018. The masses in the left upper lobe which could be a focus of metastatic disease or another primary lung cancer as there is evidence of spiculations. 2. Left upper lobe lung mass measuring 1.2 cm spiculated which could be a second primary. Pulmonary medicine has been consulted. 3. Hypercalcemia, which I suspect is due to possible malignancy. Calcium level was 13.6 on admission on 11/24/2018 and it improved to 11.7 on 11/25/2018. Continue to monitor calcium levels. I will also obtain a bone scan. 4. Dysphagia. He has had recent EGD and dilatation. 5. Thrombocytopenia, mild, which I suspect is reactive as the previous platelet count was normal at 155 on 11/24/2018. TY CUMMINS MD DR: Minh JOB#: [id number] / [id number] MTDRavi
[2018-11-25 23:00] VITALS: BP 116/61
[2018-11-26 03:00] VITALS: BP 117/52
--- NOTE | 2018-11-26 03:12 | CONS ---
DATE OF CONSULTATION: 11/25/2018 ATTENDING PHYSICIAN: Dr. Davila. REASON FOR CONSULTATION: The patient seen in pulmonary consultation at the request of Dr. Davila for abnormal CT chest. HISTORY OF PRESENT ILLNESS: The patient is a 73-year-old that has been losing weight for some time now. He also has some dysphonia. He noticed that his voice was weak over the last 2 months. He has had some difficulty swallowing. He was seen by Dr. Forde and had esophageal stretching. He has been losing weight. The family was concerned about his increasing shortness of breath and weight loss. He was unable to tolerate drinking Ensure. He presented and was admitted. He had a CT chest revealing nodular type of infiltrate in left lower lobe. He had a left upper lobe nodule that is concerning for malignancy. There was also evidence of some soft tissue swelling in the posterior larynx. I was asked to see him in consultation for further evaluation and management. PAST MEDICAL AND PAST SURGICAL HISTORY: Remarkable for tobacco dependent, quit approximately a week ago. COPD, uses metered dose inhalers at home. No history of DVT, pulmonary embolism, or diabetes. ALLERGIES: PENICILLIN. FAMILY HISTORY: Strong family history of cancer. SOCIAL HISTORY: He quit tobacco approximately a week ago. REVIEW OF SYSTEMS: As indicated above, otherwise, a 10-point system was reviewed and negative. PHYSICAL EXAMINATION: GENERAL: The patient appeared to be cachectic and significant weight loss. His BMI was 13. He weighed 88 pounds. HEENT: Eyes, the sclerae were nonicteric. NECK: Jugular venous distention was elevated. No lymphadenopathy. Obvious neck mass protruding over his Ron's apple mainly on the right side. CHEST: Full expansion. LUNGS: Poor airway flow, crackles in the left base. CARDIOVASCULAR: Regular rate and rhythm with S1, S2, no S3. ABDOMEN: Soft, nontender, nondistended. EXTREMITIES: No clubbing or cyanosis. Minimal edema. Some muscle wasting was present. LABORATORY DATA: White count was elevated at 11,000. Hemoglobin and hematocrit were noted. Electrolytes were noted. Sodium was elevated. Albumin was 3.7 upon admission. BUN was 35, creatinine was 1.0. Calcium level was high. IMPRESSION: CT chest reviewed revealing evidence of left lower lobe airspace opacities with spiculated left upper lobe mass, advanced emphysema, soft tissue of the neck, thickening of the hypopharynx and larynx at the level of the vocal cords compatible with malignancy. IMPRESSION: 1. Abnormal CT chest revealing opacity in the left lower lobe compatible with pneumonia. 2. Left upper lobe mass/nodules, suspect metastatic disease versus primary lung cancer. 3. Suspect laryngeal carcinoma. 4. Tobacco dependent. 5. Chronic obstructive pulmonary disease. 6. Protein malnutrition present upon admission. PLAN: 1. We will consult Interventional Radiology for possible fine needle aspiration. 2. Continue antibiotics for pneumonia. 3. Dietitian consult for malnutrition. 4. May need PEG tube placement for nutrition. The above was discussed with family at the bedside along with Dr. Suggs. I do appreciate the privilege in sharing in the patient's care. DANTE MOLINA MD DR: LISET/nts JOB#: [id number] / [id number]
--- NOTE | 2018-11-26 05:44 | CONS ---
DATE OF CONSULTATION: 11/25/2018 REFERRING DOCTOR: Dr. Escobar Davila. DIAGNOSIS: Clinical diagnosis of stage 4A (T4 N0 M0) bulky primary glottic carcinoma and separate stage 1 (T1 N0 M0) bronchogenic carcinoma of the left upper lobe. He presented with significant hoarseness, weight loss, throat pain, and difficulty swallowing. We were asked to see him regarding the role of radiation treatment in his care. ICD 10 C32.8 C34.12 HISTORY OF PRESENT ILLNESS: The patient is a 73-year-old gentleman, who has noted a 2-month history of progressive hoarseness, some cough productive of clear sputum with no hemoptysis, laryngeal throat pain over the last 1-2 months, weight loss from 123 down to 85 pounds with impaired swallowing and fatigue. He apparently was seen by can bander operator elsewhere possibly Dr. Dey and underwent upper endoscopy in the recent past. As a result of his current symptoms, he presented here to the Emergency Room and was admitted. PAST MEDICAL HISTORY: Remarkable for gastric ulcer disease in the past, likely underlying COPD. ALLERGIES: PENICILLIN. MEDICATIONS: See hospital list. FAMILY HISTORY: Mother from liver cancer at age 67. Sister at age 68 from malignancy involving pleura, breast, and bone. Sister is alive following surgical treatment of cervical and labial carcinoma. Nephews alive from non-Hodgkin's lymphoma treated with chemotherapy. SOCIAL HISTORY: for 9 years. from relapsed multiple myeloma. He has 3 daughters and 1 son, all living in [place]. He lives with one daughter, Khadijah in [place]. 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 PHYSICAL EXAMINATION: GENERAL: Revealed a very thin, pleasant gentleman, in no acute distress, obvious significant hoarseness. No obvious stridor. VITAL SIGNS: Weight 88.56 pounds, pulse oximetry on 2 liters 98%, blood pressure 145/68. HEENT: He was edentulous. NECK: Revealed a nodular enlarged larynx with an obvious mass on the right side of the larynx. Larynx was fixed and nonmobile. He was obviously hoarse with no stridor. Neck revealed no palpable cervical or supraclavicular adenopathy. LUNGS: Diminished breath sounds, clear. HEART: Regular. ABDOMEN: No hepatomegaly, mass, or tenderness. EXTREMITIES: No clubbing, cyanosis, or edema. LABORATORY DATA: CT scan of the neck obtained here revealed a bulky glottic mass with erosion of the thyroid cartilage, anteriorly worse on the right side. Mass extended subglottically to the proximal trachea, mass extended superiorly to involve the epiglottis vallecular space and may involve the inferior base of tongue. No adenopathy was seen. CT scan of the chest revealed small spiculated 1.2 cm left upper lobe nodule, borderline prominent pretracheal lymph node; bilateral prominence of hilar nodes, greater on the left than on the right; opacity in the left lower lobe in a linear fashion with vascularity compatible with pneumonia or atelectasis. LABORATORY STUDIES: Baseline laboratory studies: Hemoglobin 13.4, white count 10,400, platelet count 118,000. Chemistry panel: Sodium 148, potassium 4.2, creatinine 0.7. Initial calcium on admission was elevated at 13.6, following hydration 11.7. ASSESSMENT AND PLAN: In summary, my impression is that of clinical stage 4A (T4 N0 M0) carcinoma of the glottic larynx. Bulky primary disease causes significant airway narrowing down to a pinhole. Primary lesion extends into involve the thyroid cartilage, subglottis, and supraglottic regions. He also has a small separate spiculated mass in the left upper lobe compatible with likely primary bronchogenic carcinoma. He is admitted with hypercalcemia, improved with hydration, which may be paraneoplastic in nature. At this time, given the findings on his neck CT scan, I do recommend prophylactic tracheostomy at which time biopsy of his disease would be pursued to confirm his diagnosis. In light of his severe weight loss and difficulty with swallowing, supportive PEG tube placement would be indicated as well. He is interested in radiation alone as primary treatment. He is not interested in chemotherapy. In addition, he has been seen by Dr. Lee who feels he is a poor candidate for chemotherapy in light of his weight loss and diminished performance status. Early bronchogenic carcinoma is incidental and asymptomatic and should be observed over this time as we should pursue support and therapy for his primary larynx cancer as it is his main debilitating and significant malignancy. I reviewed this with the patient, his sister and daughter. I reviewed this with Dr. Latrice Monteiro as well. The patient has been chosen to have a DNR status, which is appropriate. Thank you for allowing us to participate in his evaluation. FRANCISCO HENRY MD DR: DEXTER/shereen JOB#: [id number] / [id number] JASEN Mcfadden MD, TY BRO MD, MD, SABATO MD MTDD
[2018-11-26 07:00] VITALS: BP 128/60
[2018-11-26] MEDS: BUDESONIDE 0.5 MG/2 ML NEBU. NEB SCH (07:35)
[2018-11-26] MEDS: PANTOPRAZOLE IV PUSH 40 MG VIAL. IVP SCH ×2 (08:38→17:57)
--- NOTE | 2018-11-26 08:51 | PDOC ---
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 ROS - no CP Objective Objective Vital Signs Date Time Temp Pulse Resp B/P (MAP) Pulse Ox O2 Delivery O2 Flow Rate FiO2 11/26/18 07:59 95 Nasal Cannula 2.0 11/26/18 07:00 97.5 69 18 128/60 (82) 97.5 Intake and Output 11/26/18 07:00 Intake Total 50 ml Output Total 1075 ml Balance -1025 ml Intake Oral 50 ml Output Urine Total 1075 ml Physical Exam Heart: Normal S1, Normal S2 General: Alert, Oriented X3, No acute distress Lungs: Clear to auscultation Psych/Mental Status: Mental status NL Assessment Assessment Problems Medical Problems: (1) Pulmonary infiltrate Status: Acute (2) Sepsis Status: Acute (3) Shortness of breath Status: Acute (4) Weakness Status: Acute IMPRESSION AND PLAN: 1. 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 Bulky primary disease causes significant airway narrowing. Primary lesion extends into involve the thyroid cartilage, subglottis, and supraglottic regions.Neck mass. He underwent CT scan of the soft tissue of the neck on 11/24/2018 that revealed diffuse soft tissue thickening within the hypopharynx and larynx, most prominent at the level of the vocal cords, possibly from malignancy or associated edema. No evidence of perforation. There is also a prominent mass palpable on examination in the midline region anteriorly in the neck concerning for malignancy: bulky glottic mass with erosion of the thyroid cartilage, anteriorly worse on the right side. Mass extended subglottically to the proximal trachea, mass extended superiorly to involve the epiglottis vallecular space and may involve the inferior base of tongue. No adenopathy was seen. I d/w Dr. Suggs from Rad[facility]cology. The patient's functional status is very poor (ECOG PS of 4) and he is not a candidate for chemotherapy. Palliative radiation vs hospice options were discussed with him and he prefers radiation. He will continue management per Dr Suggs. Appreciate consult by Dr Garcia. 2. Left upper lobe lung mass measuring 1.2 cm spiculated which could be a second primary. Pulmonary medicine has been consulted. 3. Hypercalcemia, which I suspect is due to possible malignancy. Calcium level was 13.6 on admission on 11/24/2018 and it improved to 11.7 on 11/25/2018. Continue to monitor calcium levels. Bone scan reveals no mets. 4. Dysphagia. He has had recent EGD and dilatation. 5. Thrombocytopenia, mild, which I suspect is reactive as the previous platelet count was normal at 155 on 11/24/2018. Comment Review of Relevant I have reviewed the following items juliet (where applicable) has been applied. Labs Laboratory Tests Test 11/24/18 15:05 11/24/18 20:50 11/25/18 03:55 White Blood Count 11.3 x10^3/uL (4.0-11.0) 10.4 x10^3/uL (4.0-11.0) Red Blood Count 5.44 x10^6/uL (4.30-5.70) 4.41 x10^6/uL (4.30-5.70) Hemoglobin 16.6 g/dL (13.0-17.5) 13.4 g/dL (13.0-17.5) Hematocrit 51.7 % (39.0-53.0) 42.0 % (39.0-53.0) Mean Corpuscular Volume 95 fL (79-100) 95 fL (79-100) Mean Corpuscular Hemoglobin 31 pg (25-35) 30 pg (25-35) Mean Corpuscular Hemoglobin Concent 32 g/dL (31-37) 32 g/dL (31-37) Red Cell Distribution Width 15.7 % (11.5-14.5) 15.7 % (11.5-14.5) Platelet Count 155 x10^3/uL (140-400) 118 x10^3/uL (140-400) Neutrophils (%) (Auto) 90 % (31-73) 85 % (31-73) Lymphocytes (%) (Auto) 6 % (24-48) 8 % (24-48) Monocytes (%) (Auto) 4 % (0-9) 7 % (0-9) Eosinophils (%) (Auto) 0 % (0-3) 0 % (0-3) Basophils (%) (Auto) 0 % (0-3) 0 % (0-3) Neutrophils # (Auto) 10.2 x10^3uL (1.8-7.7) 8.9 x10^3uL (1.8-7.7) Lymphocytes # (Auto) 0.7 x10^3/uL (1.0-4.8) 0.8 x10^3/uL (1.0-4.8) Monocytes # (Auto) 0.5 x10^3/uL (0.0-1.1) 0.7 x10^3/uL (0.0-1.1) Eosinophils # (Auto) 0.0 x10^3/uL (0.0-0.7) 0.0 x10^3/uL (0.0-0.7) Basophils # (Auto) 0.0 x10^3/uL (0.0-0.2) 0.0 x10^3/uL (0.0-0.2) Segmented Neutrophils % 85 % (35-66) Band Neutrophils % 2 % (0-9) Lymphocytes % 8 % (24-48) Monocytes % 5 % (0-10) Platelet Estimate Adequate (ADEQUATE) Sodium Level 140 mmol/L (136-145) 148 mmol/L (136-145) Potassium Level 5.0 mmol/L (3.5-5.1) 4.2 mmol/L (3.5-5.1) Chloride Level 95 mmol/L (98-107) 105 mmol/L (98-107) Carbon Dioxide Level 40 mmol/L (21-32) 41 mmol/L (21-32) Anion Gap 5 (6-14) 2 (6-14) Blood Urea Nitrogen 35 mg/dL (8-26) 28 mg/dL (8-26) Creatinine 1.0 mg/dL (0.7-1.3) 0.7 mg/dL (0.7-1.3) Estimated GFR (Cockcroft-Gault) 73.2 110.5 BUN/Creatinine Ratio 35 (6-20) 40 (6-20) Glucose Level 125 mg/dL (70-99) 76 mg/dL (70-99) Lactic Acid Level 2.9 mmol/L (0.4-2.0) 1.7 mmol/L (0.4-2.0) Calcium Level 13.6 mg/dL (8.5-10.1) 11.7 mg/dL (8.5-10.1) Magnesium Level 2.5 mg/dL (1.8-2.4) Total Bilirubin 0.7 mg/dL (0.2-1.0) 0.5 mg/dL (0.2-1.0) Aspartate Amino Transf (AST/SGOT) 29 U/L (15-37) 25 U/L (15-37) Alanine Aminotransferase (ALT/SGPT) 25 U/L (16-63) 21 U/L (16-63) Alkaline Phosphatase 105 U/L (46-116) 75 U/L (46-116) Troponin I Quantitative 0.017 ng/mL (0.000-0.055) Total Protein 8.6 g/dL (6.4-8.2) 6.4 g/dL (6.4-8.2) Albumin 3.7 g/dL (3.4-5.0) 2.7 g/dL (3.4-5.0) Albumin/Globulin Ratio 0.8 (1.0-1.7) 0.7 (1.0-1.7) Procalcitonin < 0.10 ng/mL (0.00-0.10) Microbiology 11/24/18 Blood Culture - Preliminary, Resulted NO GROWTH AFTER 1 DAY Medications Current Medications Sodium Chloride 1,000 ml @ 1,000 mls/hr 1X ONCE IV Last administered on at 16:04; Start 11/24/18 at 15:45; Stop 11/24/18 at 16:44; Status DC Vancomycin HCl (Vanco Per Pharmacy) 1 each PRN DAILY PRN MC SEE COMMENTS Last administered on 11/25/18at 13:23; Start 11/24/18 at 17:30; Stop 11/25/18 at 15:31 ; Status DC Levofloxacin/ Dextrose 150 ml @ 100 mls/hr 1X ONCE IV Last administered on at 18:10; Start 11/24/18 at 17:30; Stop 11/24/18 at 18:59; Status DC Vancomycin HCl 250 ml @ 250 mls/hr 1X ONCE IV Last administered on 11/24/18at 20:08; Start 11/24/18 at 17:30; Stop 11/24/18 at 18:29; Status DC Iohexol (Omnipaque 350 Mg/ml) 75 ml 1X ONCE IV Last administered on 11/24/18at 18:00; Start 11/24/18 at 17:45; Stop 11/24/18 at 17:46; Status DC Info (CONTRAST GIVEN -- Rx MONITORING) 1 each PRN DAILY PRN MC SEE COMMENTS; Start 11/24/18 at 17:45; Stop 11/26/18 at 17:44 Albuterol/ Ipratropium (Duoneb) 3 ml 1X ONCE NEB Last administered on at 18:30; Start 11/24/18 at 18:30; Stop 11/24/18 at 18:31; Status DC Sodium Chloride 1,000 ml @ 100 mls/hr Q10H IV Last administered on 11/25/18at 15:40; Start 11/24/18 at 18:48; Stop 11/25/18 at 18:47; Status DC Albuterol/ Ipratropium (Duoneb) 3 ml RTQID NEB Last administered on 11/25/18at 16:33; Start 11/24/18 at 20:00; Stop 11/25/18 at 19:59; Status DC Vancomycin HCl 500 mg/Sodium Chloride 100 ml @ 100 mls/hr Q24H IV ; Start 11/25 at 20:30; Stop 11/25/18 at 20:30; Status DC Vancomycin HCl (Vancomycin Trough Level) 1 each 1X ONCE MC ; Start 11/26/18 at 20:00; Stop 11/26/18 at 20:01; Status Cancel Budesonide (Pulmicort) 0.5 mg RTBID NEB Last administered on 11/26/18at 07:35; Start 11/25/18 at 20:00 Levofloxacin/ Dextrose 50 ml @ 50 mls/hr Q24H IV Last administered on at 16:20; Start 11/25/18 at 16:00 Pantoprazole Sodium (PROTONIX VIAL for IV PUSH) 40 mg BIDAC IVP Last administered on 11/26/18at 08:38; Start 11/25/18 at 17:00 Active Scripts Active Reported Protonix (Pantoprazole Sodium) 20 Mg Tablet.dr 40 Mg PO DAILY Ipratropium [place] 0.2 Mg/1 Ml Solution 1 Vial NEB QID Vitamin B Complex 1 Each Capsule 1 Each PO DAILY Multivitamins (Multivitamin) 1 Each Tablet 1 Tab PO DAILY Atorvastatin Calcium 10 Mg Tablet 1 Tab PO DAILY Combivent Respimat Inhal (Ipratropium/Albuterol Sulfate) 4 Gm Aer.w.adap Unknown Dose IH QID 2 puffs 4 times per day Vitals/I & O Vital Sign - Last 24 Hours 11/25/18 11/25/18 11/25/18 11/25/18 11:00 11:34 15:00 16:34 Temp 97.8 97.6 97.8 97.6 Pulse 72 63 Resp 17 18 B/P (MAP) 145/68 (93) 128/69 (88) Pulse Ox 94 98 97 98 O2 Delivery Nasal Cannula Nasal Cannula Nasal Cannula Nasal Cannula O2 Flow Rate 2.0 2.0 2.0 2.0 11/25/18 11/25/18 11/25/18 11/25/18 19:00 20:05 20:05 23:00 Temp 97.6 97.6 97.6 97.6 Pulse 78 67 Resp 18 18 B/P (MAP) 130/57 (81) 116/61 (79) Pulse Ox 99 96 O2 Delivery Nasal Cannula Nasal Cannula Nasal Cannula Nasal Cannula O2 Flow Rate 2.0 2.0 2.0 2.0 11/26/18 11/26/18 11/26/18 03:00 07:00 07:59 Temp 97.6 97.5 97.6 97.5 Pulse 65 69 Resp 18 18 B/P (MAP) 117/52 (73) 128/60 (82) Pulse Ox 97 96 95 O2 Delivery Nasal Cannula Nasal Cannula Nasal Cannula O2 Flow Rate 2.0 2.0 2.0 Intake and Output 11/25/18 11/25/18 11/26/18 15:00 23:00 07:00 Intake Total 0 ml 50 ml Output Total 500 ml 200 ml 375 ml Balance -500 ml -200 ml -325 ml Nutrition Consultation Dietary Evaluation: Recommendations by RD: Increase Calorie Intake, Protein supplementation Comments: sending ensure clear supplements with clear liqud tray consider tube feeds for nutrition needs to be met Expected Outcomes/Goals: to meet > 50% est nutr needs via po intake Interpretation of weight loss: >5% in 1 month Malnutrition Findings: Muscle Mass (Severe): Severe Depletion Food and Nutrition Intake (Sev: <50% est energy req 5days Body Fat Depletion (Non Severe: Mod to Severe Weight Status: Emaciated TY CUMMINS MD Nov 26, 2018 08:51
[2018-11-26] MEDS ORDERED: ONDANSETRON ODT 4 MG TAB.RAPDIS. PO PRN (09:00)
[2018-11-26] MEDS ORDERED: MULTIVITAMIN with MINERAL TABLET. PO SCH (09:00)
[2018-11-26] MEDS ORDERED: VITAMIN B COMPLEX TABLET. PO SCH (09:00)
[2018-11-26] MEDS ORDERED: ACETAMINOPHEN 500 MG TABLET PO PRN (09:00)
[2018-11-26] MEDS ORDERED: AMINO AC 3%/ELECTROLYTE/GLYCER 1,000 ML IV SCH (09:00)
[2018-11-26] MEDS ORDERED: ALBUTEROL SULFATE 2.5 MG/3 ML NEBU. NEB PRN (09:00)
[2018-11-26] MEDS ORDERED: ONDANSETRON PF 4 MG/2 ML VIAL. IV PRN (09:00)
[2018-11-26] MEDS ORDERED: guaiFENesin DM 200MG/20MG 10 ML SYRUP PO PRN (09:00)
--- NOTE | 2018-11-26 09:32 | PDOC ---
PULMONARY PROGRESS NOTES Vitals Vital Signs Date Time Temp Pulse Resp B/P (MAP) Pulse Ox O2 Delivery O2 Flow Rate FiO2 11/26/18 07:59 95 Nasal Cannula 2.0 11/26/18 07:00 97.5 69 18 128/60 (82) 97.5 Lungs: Clear, Wheezing Labs Laboratory Tests Test 11/24/18 15:05 11/24/18 20:50 11/25/18 03:55 White Blood Count 11.3 x10^3/uL (4.0-11.0) 10.4 x10^3/uL (4.0-11.0) Red Blood Count 5.44 x10^6/uL (4.30-5.70) 4.41 x10^6/uL (4.30-5.70) Hemoglobin 16.6 g/dL (13.0-17.5) 13.4 g/dL (13.0-17.5) Hematocrit 51.7 % (39.0-53.0) 42.0 % (39.0-53.0) Mean Corpuscular Volume 95 fL (79-100) 95 fL (79-100) Mean Corpuscular Hemoglobin 31 pg (25-35) 30 pg (25-35) Mean Corpuscular Hemoglobin Concent 32 g/dL (31-37) 32 g/dL (31-37) Red Cell Distribution Width 15.7 % (11.5-14.5) 15.7 % (11.5-14.5) Platelet Count 155 x10^3/uL (140-400) 118 x10^3/uL (140-400) Neutrophils (%) (Auto) 90 % (31-73) 85 % (31-73) Lymphocytes (%) (Auto) 6 % (24-48) 8 % (24-48) Monocytes (%) (Auto) 4 % (0-9) 7 % (0-9) Eosinophils (%) (Auto) 0 % (0-3) 0 % (0-3) Basophils (%) (Auto) 0 % (0-3) 0 % (0-3) Neutrophils # (Auto) 10.2 x10^3uL (1.8-7.7) 8.9 x10^3uL (1.8-7.7) Lymphocytes # (Auto) 0.7 x10^3/uL (1.0-4.8) 0.8 x10^3/uL (1.0-4.8) Monocytes # (Auto) 0.5 x10^3/uL (0.0-1.1) 0.7 x10^3/uL (0.0-1.1) Eosinophils # (Auto) 0.0 x10^3/uL (0.0-0.7) 0.0 x10^3/uL (0.0-0.7) Basophils # (Auto) 0.0 x10^3/uL (0.0-0.2) 0.0 x10^3/uL (0.0-0.2) Segmented Neutrophils % 85 % (35-66) Band Neutrophils % 2 % (0-9) Lymphocytes % 8 % (24-48) Monocytes % 5 % (0-10) Platelet Estimate Adequate (ADEQUATE) Sodium Level 140 mmol/L (136-145) 148 mmol/L (136-145) Potassium Level 5.0 mmol/L (3.5-5.1) 4.2 mmol/L (3.5-5.1) Chloride Level 95 mmol/L (98-107) 105 mmol/L (98-107) Carbon Dioxide Level 40 mmol/L (21-32) 41 mmol/L (21-32) Anion Gap 5 (6-14) 2 (6-14) Blood Urea Nitrogen 35 mg/dL (8-26) 28 mg/dL (8-26) Creatinine 1.0 mg/dL (0.7-1.3) 0.7 mg/dL (0.7-1.3) Estimated GFR (Cockcroft-Gault) 73.2 110.5 BUN/Creatinine Ratio 35 (6-20) 40 (6-20) Glucose Level 125 mg/dL (70-99) 76 mg/dL (70-99) Lactic Acid Level 2.9 mmol/L (0.4-2.0) 1.7 mmol/L (0.4-2.0) Calcium Level 13.6 mg/dL (8.5-10.1) 11.7 mg/dL (8.5-10.1) Magnesium Level 2.5 mg/dL (1.8-2.4) Total Bilirubin 0.7 mg/dL (0.2-1.0) 0.5 mg/dL (0.2-1.0) Aspartate Amino Transf (AST/SGOT) 29 U/L (15-37) 25 U/L (15-37) Alanine Aminotransferase (ALT/SGPT) 25 U/L (16-63) 21 U/L (16-63) Alkaline Phosphatase 105 U/L (46-116) 75 U/L (46-116) Troponin I Quantitative 0.017 ng/mL (0.000-0.055) Total Protein 8.6 g/dL (6.4-8.2) 6.4 g/dL (6.4-8.2) Albumin 3.7 g/dL (3.4-5.0) 2.7 g/dL (3.4-5.0) Albumin/Globulin Ratio 0.8 (1.0-1.7) 0.7 (1.0-1.7) Procalcitonin < 0.10 ng/mL (0.00-0.10) Medications Active Scripts Medications Dose Route/Sig Max Daily Dose Days Date Category Dose Instructions Protonix (Pantoprazole Sodium) 20 Mg Tablet.dr 40 Mg PO DAILY 11/25/18 Reported Ipratropium [place] 0.2 Mg/1 Ml Solution 1 Vial NEB QID 11/25/18 Reported Vitamin B Complex 1 Each Capsule 1 Each PO DAILY 11/25/18 Reported Multivitamins (Multivitamin) 1 Each Tablet 1 Tab PO DAILY 11/25/18 Reported Atorvastatin Calcium 10 Mg Tablet 1 Tab PO DAILY 11/25/18 Reported Combivent Respimat Inhal (Ipratropium/Albuterol Sulfate) 4 Gm Aer.w.adap Unknown Dose IH QID 11/24/18 Reported 2 puffs 4 times per day Impression . FULL NOTE DICTATED THANKS DANTE MOLINA MD Nov 26, 2018 09:32
--- NOTE | 2018-11-26 10:23 | PDOC2 ---
PALLIATIVE CARE Palliative Care Note Palliative Care Consult requested by Dr. Lee to address goals of care. Medical Assessment per medical record 1. 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 The patient's functional status is very poor (ECOG PS of 4) and he is not a candidate for chemotherapy. Palliative radiation vs hospice options were discussed with him and he prefers radiation. 2. Left upper lobe lung mass measuring 1.2 cm spiculated 3. Hypercalcemia, 4. Dysphagia. 5. Thrombocytopenia, Patient alert and oriented. Understands his medical condition and has chosen to proceed with Radiation tx He lives with his daughter. Confirmed Code status; DNR/DNI. Outside the Hospital DNR/DNI form signed. Discussed Hospice Support when appropriate. Will meet with daughter when available. LUIS PALMA Nov 26, 2018 10:23
[2018-11-26 11:00] VITALS: BP 121/70
--- NOTE | 2018-11-26 11:49 | PDOC ---
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 NO ent in house GI also consulted for possible PEG but also uncomfortable doing a PEG with very compromising airway (needs to lay down etc) We'll attempt transfer to Vitals Vitals Vital Signs Date Time Temp Pulse Resp B/P (MAP) Pulse Ox O2 Delivery O2 Flow Rate FiO2 11/26/18 11:00 96.6 64 16 121/70 (87) 95 Nasal Cannula 2.0 96.6 Physical Exam General: Alert, Oriented X3, No acute distress Heart: Normal S1, Normal S2 Lungs: Clear, Wheezing Abdomen: Soft Extremities: No clubbing, No cyanosis Skin: No rashes, No breakdown Review of Systems Review of Systems Difficulty swallowing, sometimes S OA The rest of 14 point limited, very hoarse Assessment and Plan Assessmemt and Plan Problems Medical Problems: (1) Pulmonary infiltrate Status: Acute (2) Sepsis Status: Acute (3) Shortness of breath Status: Acute (4) Weakness Status: Acute Comment Review of Relevant I have reviewed the following items juliet (where applicable) has been applied. Labs Laboratory Tests Test 11/24/18 15:05 11/24/18 20:50 11/25/18 03:55 White Blood Count 11.3 x10^3/uL (4.0-11.0) 10.4 x10^3/uL (4.0-11.0) Red Blood Count 5.44 x10^6/uL (4.30-5.70) 4.41 x10^6/uL (4.30-5.70) Hemoglobin 16.6 g/dL (13.0-17.5) 13.4 g/dL (13.0-17.5) Hematocrit 51.7 % (39.0-53.0) 42.0 % (39.0-53.0) Mean Corpuscular Volume 95 fL (79-100) 95 fL (79-100) Mean Corpuscular Hemoglobin 31 pg (25-35) 30 pg (25-35) Mean Corpuscular Hemoglobin Concent 32 g/dL (31-37) 32 g/dL (31-37) Red Cell Distribution Width 15.7 % (11.5-14.5) 15.7 % (11.5-14.5) Platelet Count 155 x10^3/uL (140-400) 118 x10^3/uL (140-400) Neutrophils (%) (Auto) 90 % (31-73) 85 % (31-73) Lymphocytes (%) (Auto) 6 % (24-48) 8 % (24-48) Monocytes (%) (Auto) 4 % (0-9) 7 % (0-9) Eosinophils (%) (Auto) 0 % (0-3) 0 % (0-3) Basophils (%) (Auto) 0 % (0-3) 0 % (0-3) Neutrophils # (Auto) 10.2 x10^3uL (1.8-7.7) 8.9 x10^3uL (1.8-7.7) Lymphocytes # (Auto) 0.7 x10^3/uL (1.0-4.8) 0.8 x10^3/uL (1.0-4.8) Monocytes # (Auto) 0.5 x10^3/uL (0.0-1.1) 0.7 x10^3/uL (0.0-1.1) Eosinophils # (Auto) 0.0 x10^3/uL (0.0-0.7) 0.0 x10^3/uL (0.0-0.7) Basophils # (Auto) 0.0 x10^3/uL (0.0-0.2) 0.0 x10^3/uL (0.0-0.2) Segmented Neutrophils % 85 % (35-66) Band Neutrophils % 2 % (0-9) Lymphocytes % 8 % (24-48) Monocytes % 5 % (0-10) Platelet Estimate Adequate (ADEQUATE) Sodium Level 140 mmol/L (136-145) 148 mmol/L (136-145) Potassium Level 5.0 mmol/L (3.5-5.1) 4.2 mmol/L (3.5-5.1) Chloride Level 95 mmol/L (98-107) 105 mmol/L (98-107) Carbon Dioxide Level 40 mmol/L (21-32) 41 mmol/L (21-32) Anion Gap 5 (6-14) 2 (6-14) Blood Urea Nitrogen 35 mg/dL (8-26) 28 mg/dL (8-26) Creatinine 1.0 mg/dL (0.7-1.3) 0.7 mg/dL (0.7-1.3) Estimated GFR (Cockcroft-Gault) 73.2 110.5 BUN/Creatinine Ratio 35 (6-20) 40 (6-20) Glucose Level 125 mg/dL (70-99) 76 mg/dL (70-99) Lactic Acid Level 2.9 mmol/L (0.4-2.0) 1.7 mmol/L (0.4-2.0) Calcium Level 13.6 mg/dL (8.5-10.1) 11.7 mg/dL (8.5-10.1) Magnesium Level 2.5 mg/dL (1.8-2.4) Total Bilirubin 0.7 mg/dL (0.2-1.0) 0.5 mg/dL (0.2-1.0) Aspartate Amino Transf (AST/SGOT) 29 U/L (15-37) 25 U/L (15-37) Alanine Aminotransferase (ALT/SGPT) 25 U/L (16-63) 21 U/L (16-63) Alkaline Phosphatase 105 U/L (46-116) 75 U/L (46-116) Troponin I Quantitative 0.017 ng/mL (0.000-0.055) Total Protein 8.6 g/dL (6.4-8.2) 6.4 g/dL (6.4-8.2) Albumin 3.7 g/dL (3.4-5.0) 2.7 g/dL (3.4-5.0) Albumin/Globulin Ratio 0.8 (1.0-1.7) 0.7 (1.0-1.7) Procalcitonin < 0.10 ng/mL (0.00-0.10) Microbiology 11/24/18 Blood Culture - Preliminary, Resulted NO GROWTH AFTER 1 DAY Medications Current Medications Sodium Chloride 1,000 ml @ 1,000 mls/hr 1X ONCE IV Last administered on at 16:04; Start 11/24/18 at 15:45; Stop 11/24/18 at 16:44; Status DC Vancomycin HCl (Vanco Per Pharmacy) 1 each PRN DAILY PRN MC SEE COMMENTS Last administered on 11/25/18at 13:23; Start 11/24/18 at 17:30; Stop 11/25/18 at 15:31 ; Status DC Levofloxacin/ Dextrose 150 ml @ 100 mls/hr 1X ONCE IV Last administered on at 18:10; Start 11/24/18 at 17:30; Stop 11/24/18 at 18:59; Status DC Vancomycin HCl 250 ml @ 250 mls/hr 1X ONCE IV Last administered on 11/24/18at 20:08; Start 11/24/18 at 17:30; Stop 11/24/18 at 18:29; Status DC Iohexol (Omnipaque 350 Mg/ml) 75 ml 1X ONCE IV Last administered on 11/24/18at 18:00; Start 11/24/18 at 17:45; Stop 11/24/18 at 17:46; Status DC Info (CONTRAST GIVEN -- Rx MONITORING) 1 each PRN DAILY PRN MC SEE COMMENTS; Start 11/24/18 at 17:45; Stop 11/26/18 at 17:44 Albuterol/ Ipratropium (Duoneb) 3 ml 1X ONCE NEB Last administered on at 18:30; Start 11/24/18 at 18:30; Stop 11/24/18 at 18:31; Status DC Sodium Chloride 1,000 ml @ 100 mls/hr Q10H IV Last administered on 11/25/18at 15:40; Start 11/24/18 at 18:48; Stop 11/25/18 at 18:47; Status DC Albuterol/ Ipratropium (Duoneb) 3 ml RTQID NEB Last administered on 11/25/18at 16:33; Start 11/24/18 at 20:00; Stop 11/25/18 at 19:59; Status DC Vancomycin HCl 500 mg/Sodium Chloride 100 ml @ 100 mls/hr Q24H IV ; Start 11/25 at 20:30; Stop 11/25/18 at 20:30; Status DC Vancomycin HCl (Vancomycin Trough Level) 1 each 1X ONCE MC ; Start 11/26/18 at 20:00; Stop 11/26/18 at 20:01; Status Cancel Budesonide (Pulmicort) 0.5 mg RTBID NEB Last administered on 11/26/18at 07:35; Start 11/25/18 at 20:00 Levofloxacin/ Dextrose 50 ml @ 50 mls/hr Q24H IV Last administered on at 16:20; Start 11/25/18 at 16:00 Pantoprazole Sodium (PROTONIX VIAL for IV PUSH) 40 mg BIDAC IVP Last administered on 11/26/18at 08:38; Start 11/25/18 at 17:00 Albuterol Sulfate (Ventolin Neb Soln) 2.5 mg PRN Q4HRS PRN NEB SHORTNESS OF BREATH; Start 11/26/18 at 09:00 Guaifenesin (Robitussin Dm) 10 ml PRN Q6HRS PRN PO COUGH; Start 11/26/18 at 09: 00 Ondansetron HCl (Zofran Odt) 4 mg PRN Q6HRS PRN PO NAUSEA/VOMITING; Start 11/26 at 09:00 Ondansetron HCl (Zofran) 4 mg PRN Q6HRS PRN IV NAUSEA/VOMITING; Start 11/26/18 at 09:00 Acetaminophen (Tylenol) 500 mg PRN Q6HRS PRN PO MILD PAIN / TEMP; Start at 09:00 Atorvastatin Calcium (Lipitor) 10 mg QHS PO ; Start 11/26/18 at 21:00 Multivitamins (Thera M Plus) 1 tab DAILY PO Last administered on 11/26/18at 09: 35; Start 11/26/18 at 09:00 Vitamin B Complex (Barrett B) 1 tab DAILY PO Last administered on 11/26/18at 09:35 ; Start 11/26/18 at 09:00 Amino Acids/ Glycerin/ Electrolytes 1,000 ml @ 80 mls/hr [id number] IV Last administered on 11/26/18at 09:35; Start 11/26/18 at 09:00 Active Scripts Active Reported Protonix (Pantoprazole Sodium) 20 Mg Tablet.dr 40 Mg PO DAILY Ipratropium [place] 0.2 Mg/1 Ml Solution 1 Vial NEB QID Vitamin B Complex 1 Each Capsule 1 Each PO DAILY Multivitamins (Multivitamin) 1 Each Tablet 1 Tab PO DAILY Atorvastatin Calcium 10 Mg Tablet 1 Tab PO DAILY Combivent Respimat Inhal (Ipratropium/Albuterol Sulfate) 4 Gm Aer.w.adap Unknown Dose IH QID 2 puffs 4 times per day Vitals/I & O Vital Sign - Last 24 Hours 11/25/18 11/25/18 11/25/18 11/25/18 15:00 16:34 19:00 20:05 Temp 97.6 97.6 97.6 97.6 Pulse 63 78 Resp 18 18 B/P (MAP) 128/69 (88) 130/57 (81) Pulse Ox 97 98 99 O2 Delivery Nasal Cannula Nasal Cannula Nasal Cannula Nasal Cannula O2 Flow Rate 2.0 2.0 2.0 2.0 11/25/18 11/25/18 11/26/18 11/26/18 20:05 23:00 03:00 07:00 Temp 97.6 97.6 97.5 97.6 97.6 97.5 Pulse 67 65 69 Resp 18 18 18 B/P (MAP) 116/61 (79) 117/52 (73) 128/60 (82) Pulse Ox 96 97 96 O2 Delivery Nasal Cannula Nasal Cannula Nasal Cannula Nasal Cannula O2 Flow Rate 2.0 2.0 2.0 2.0 11/26/18 11/26/18 11/26/18 07:59 08:00 11:00 Temp 96.6 96.6 Pulse 64 Resp 16 B/P (MAP) 121/70 (87) Pulse Ox 95 95 O2 Delivery Nasal Cannula Nasal Cannula Nasal Cannula O2 Flow Rate 2.0 2.5 2.0 Intake and Output 11/25/18 11/25/18 11/26/18 14:59 22:59 06:59 Intake Total 0 ml 50 ml Output Total 500 ml 200 ml 375 ml Balance -500 ml -200 ml -325 ml Nutrition Consultation Dietary Evaluation: Recommendations by RD: Increase Calorie Intake, Protein supplementation Comments: sending ensure clear supplements with clear liqud tray consider tube feeds for nutrition needs to be met Expected Outcomes/Goals: to meet > 50% est nutr needs via po intake Interpretation of weight loss: >5% in 1 month Malnutrition Findings: Muscle Mass (Severe): Severe Depletion Food and Nutrition Intake (Sev: <50% est energy req 5days Body Fat Depletion (Non Severe: Mod to Severe Weight Status: Emaciated ANGELITO SIMON MD Nov 26, 2018 11:48
--- NOTE | 2018-11-26 12:05 | PDOC ---
Subjective: Subjective: Feels the same. Says they are trying to send him to [facility]. Objective: Objective: Reviewed other notes and d/w Dr. Monteiro. 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 EGD w/ PEG placement very risky w/ airway issues. Tracheostomy placement also problematic - ET intubation not possible, would need to debulk tumor w/ rigid bronch on vent followed by trach intubation and then tracheostomy. PEG w/ IR not an option here. [facility] transfer discussed in primary note. SOFYA WELCH Nov 26, 2018 12:05
--- NOTE | 2018-11-26 12:09 | NUR ---
Per Physician request, LAURA made an inpatient transfer request to , phone: [phone], fax: [phone]. Spoke with Ammon, cleaning machine operator at and provided Physician phone number. Referral faxed to and LAURA requested Radiology to [facility]. Pt acceptance and admission pending. Will continue to follow.
--- NOTE | 2018-11-26 13:09 | PDOC ---
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 Presented with hoarseness, 38 pound weight loss, throat pain, impaired swallowing and fatigue. PE emaciated, hoarse no stridor, in NAD. Mass palpable around larynx which is fixed and non-mobile. No palpable LNs CT Neck bulky mass in glottic larynx with thyroid cartilage erosion. mass extends superiorly into epiglottis and vallecular space possibly involving inferior base of tongue and inferiorly into subglottis. Pinhole preserved airway. No adenopathy CT chest 1 cm spiculated PREETI nodule and atelectatic band in base. borderline adenopathy in mediastinum, prominent nodes in Lt > Rt hilar regions. Impression: st IV A bulky glottic carcinoma with impending airway compromise on CT and nutritional failure. Likely separate lung primary lesion with pneumonia with Lns likely inflammatory in source. He does desire treatment with radiation alone to the bulky larynx cancer. Dr. Lee also does not recommend chemo due to weight loss and low performance status. I would observe lung primary lesion. Code status chosen ( DNR) appropriate. Discussed with Davina Caicedo Sisillo and Radha Pursuing awake trach,PEG tube and biopsy here is beyond the comfort of level of our physicians here. In this case, transfer to is appropriate. If the patient and family wish, they could return here for radiation treatment. At this time he is inclined to stay at for this. General discussion with family and patient. FRANCISCO HENRY MD Nov 26, 2018 13:09
--- NOTE | 2018-11-26 14:18 | NUR ---
LAURA following pt. SW notified by Physician pt was approved clinically and finically at but admitting doctors are at capacity at this time. Per Physician request, SW initiated a transfer request to [facility], phone:[phone], fax:[phone] and provided Physician phone number. Pt's face sheet and copy of insurance cards faxed to [facility]. dolly pusher reported she will contact Physician after getting an approval from case management team. Pt acceptance and admission pending. Will continue to follow.
--- NOTE | 2018-11-26 14:23 | PDOC ---
PULMONARY PROGRESS NOTES Subjective PT NOT ANY BETTER Vitals Vital Signs Date Time Temp Pulse Resp B/P (MAP) Pulse Ox O2 Delivery O2 Flow Rate FiO2 11/26/18 11:00 96.6 64 16 121/70 (87) 95 Nasal Cannula 2.0 96.6 ROS: No Nausea, No Chest Pain, No Abdominal Pain, No Increase Cough HEENT: Other (NECK MASS) Lungs: Clear, Wheezing Cardiovascular: S1, S2 Abdomen: Soft Neuro Exam: Alert Extremities: No Edema Skin: Warm Labs Laboratory Tests Test 11/24/18 15:05 11/24/18 20:50 11/25/18 03:55 White Blood Count 11.3 x10^3/uL (4.0-11.0) 10.4 x10^3/uL (4.0-11.0) Red Blood Count 5.44 x10^6/uL (4.30-5.70) 4.41 x10^6/uL (4.30-5.70) Hemoglobin 16.6 g/dL (13.0-17.5) 13.4 g/dL (13.0-17.5) Hematocrit 51.7 % (39.0-53.0) 42.0 % (39.0-53.0) Mean Corpuscular Volume 95 fL (79-100) 95 fL (79-100) Mean Corpuscular Hemoglobin 31 pg (25-35) 30 pg (25-35) Mean Corpuscular Hemoglobin Concent 32 g/dL (31-37) 32 g/dL (31-37) Red Cell Distribution Width 15.7 % (11.5-14.5) 15.7 % (11.5-14.5) Platelet Count 155 x10^3/uL (140-400) 118 x10^3/uL (140-400) Neutrophils (%) (Auto) 90 % (31-73) 85 % (31-73) Lymphocytes (%) (Auto) 6 % (24-48) 8 % (24-48) Monocytes (%) (Auto) 4 % (0-9) 7 % (0-9) Eosinophils (%) (Auto) 0 % (0-3) 0 % (0-3) Basophils (%) (Auto) 0 % (0-3) 0 % (0-3) Neutrophils # (Auto) 10.2 x10^3uL (1.8-7.7) 8.9 x10^3uL (1.8-7.7) Lymphocytes # (Auto) 0.7 x10^3/uL (1.0-4.8) 0.8 x10^3/uL (1.0-4.8) Monocytes # (Auto) 0.5 x10^3/uL (0.0-1.1) 0.7 x10^3/uL (0.0-1.1) Eosinophils # (Auto) 0.0 x10^3/uL (0.0-0.7) 0.0 x10^3/uL (0.0-0.7) Basophils # (Auto) 0.0 x10^3/uL (0.0-0.2) 0.0 x10^3/uL (0.0-0.2) Segmented Neutrophils % 85 % (35-66) Band Neutrophils % 2 % (0-9) Lymphocytes % 8 % (24-48) Monocytes % 5 % (0-10) Platelet Estimate Adequate (ADEQUATE) Sodium Level 140 mmol/L (136-145) 148 mmol/L (136-145) Potassium Level 5.0 mmol/L (3.5-5.1) 4.2 mmol/L (3.5-5.1) Chloride Level 95 mmol/L (98-107) 105 mmol/L (98-107) Carbon Dioxide Level 40 mmol/L (21-32) 41 mmol/L (21-32) Anion Gap 5 (6-14) 2 (6-14) Blood Urea Nitrogen 35 mg/dL (8-26) 28 mg/dL (8-26) Creatinine 1.0 mg/dL (0.7-1.3) 0.7 mg/dL (0.7-1.3) Estimated GFR (Cockcroft-Gault) 73.2 110.5 BUN/Creatinine Ratio 35 (6-20) 40 (6-20) Glucose Level 125 mg/dL (70-99) 76 mg/dL (70-99) Lactic Acid Level 2.9 mmol/L (0.4-2.0) 1.7 mmol/L (0.4-2.0) Calcium Level 13.6 mg/dL (8.5-10.1) 11.7 mg/dL (8.5-10.1) Magnesium Level 2.5 mg/dL (1.8-2.4) Total Bilirubin 0.7 mg/dL (0.2-1.0) 0.5 mg/dL (0.2-1.0) Aspartate Amino Transf (AST/SGOT) 29 U/L (15-37) 25 U/L (15-37) Alanine Aminotransferase (ALT/SGPT) 25 U/L (16-63) 21 U/L (16-63) Alkaline Phosphatase 105 U/L (46-116) 75 U/L (46-116) Troponin I Quantitative 0.017 ng/mL (0.000-0.055) Total Protein 8.6 g/dL (6.4-8.2) 6.4 g/dL (6.4-8.2) Albumin 3.7 g/dL (3.4-5.0) 2.7 g/dL (3.4-5.0) Albumin/Globulin Ratio 0.8 (1.0-1.7) 0.7 (1.0-1.7) Procalcitonin < 0.10 ng/mL (0.00-0.10) Medications Active Scripts Medications Dose Route/Sig Max Daily Dose Days Date Category Dose Instructions Protonix (Pantoprazole Sodium) 20 Mg Tablet.dr 40 Mg PO DAILY 11/25/18 Reported Ipratropium [place] 0.2 Mg/1 Ml Solution 1 Vial NEB QID 11/25/18 Reported Vitamin B Complex 1 Each Capsule 1 Each PO DAILY 11/25/18 Reported Multivitamins (Multivitamin) 1 Each Tablet 1 Tab PO DAILY 11/25/18 Reported Atorvastatin Calcium 10 Mg Tablet 1 Tab PO DAILY 11/25/18 Reported Combivent Respimat Inhal (Ipratropium/Albuterol Sulfate) 4 Gm Aer.w.adap Unknown Dose IH QID 11/24/18 Reported 2 puffs 4 times per day Impression . IMPRESSION: 1. Abnormal CT chest revealing opacity in the left lower lobe compatible with pneumonia. 2. Left upper lobe mass/nodules, suspect metastatic disease versus primary lung cancer. 3. Suspect laryngeal carcinoma. 4. Tobacco dependent. 5. Chronic obstructive pulmonary disease. 6. Protein malnutrition present upon admission. Plan . PT IS IN NEED OF HIGHER LEVEL OF CARE D/W ROBERT MANLEY, ELAINE RECOMMEND TO TRANSFER TO D/W DR JUNG FOR NOW CONTINUE THE SAME DANTE MOLINA MD Nov 26, 2018 14:23
[2018-11-26 15:00] VITALS: BP 130/50
--- NOTE | 2018-11-26 16:02 | NUR ---
SW notified by Physician that pt is accepted at [facility] and currently on wait list. Please call [facility], phone:[phone], fax:[phone] to follow up. Discussed with RN.
[2018-11-26] MEDS ORDERED: FUROSEMIDE 40 MG/4 ML VIAL. IVP ONE (16:45)
[2018-11-26] MEDS ORDERED: CALCITONIN,SALMON 400 UNIT/2 ML VIAL. SQ SCH ×2 (17:00→22:00)
[2018-11-26 19:00] VITALS: BP 126/59
--- NOTE | 2018-11-26 20:24 | NUR ---
Patient transfer Pt transfer teaching was given to pt and family at bedside. Pt and family verbalized understanding of transfer to [facility]. Appropriate protocols was taken. Pt was escort down by EMS with family by his side.
[2018-11-26] MEDS ORDERED: LACTOBACILLUS RHAMNOSUS GG 1 CAPSULE. PO SCH (21:00)
[2018-11-26] MEDS ORDERED: ATORVASTATIN CALCIUM 10 MG TABLET. PO SCH (21:00)
--- NOTE | 2018-11-27 08:58 | PDOC3 ---
Discharge Summary Visit Information Date of Admission: Nov 24, 2018 Date of Discharge: Nov 26, 2018 Admitting Diagnosis Comment: clinical stage 4A (T4N0 M0) carcinoma of the glottic larynx Severe PCM Anorexia, BMI 13.4 GEriatric Smoker COPD Final Diagnosis Problems Medical Problems: (1) Pulmonary infiltrate Status: Acute (2) Sepsis Status: Acute (3) Shortness of breath Status: Acute (4) Weakness Status: Acute Brief Hospital Course Allergies Allergies Coded Allergies Type Severity Reaction Last Updated Verified Penicillins Allergy Intermediate HIVES 11/24/18 Yes Vital Signs Vital Signs Date Time Temp Pulse Resp B/P (MAP) Pulse Ox O2 Delivery O2 Flow Rate FiO2 11/26/18 19:00 97.9 66 16 126/59 (81) 97 Nasal Cannula 4.0 97.9 Brief Hospital Course 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 Comes in because of weight loss fatigue, and an obvious neck mass. Multiple consults including IR, silvioo, T [facility] for trach, GI for PEG. But he has a pin size airway. I attempted transfer to , full beds. I attempted transfer to [facility]. Initially full better but they were able to bump him up because of critical condition. So far not tripoding or no stridor. Lots of calls yesterday, spoke with patient also family. Spoke with multiple specialists. Two Notes yesterday Critical care time cumulative maybe 45 minutes Procedures performed none just PPN Discharge Information Condition at Discharge: Stable Disposition/Orders: Other ([facility]) Scheduled Atorvastatin Calcium (Atorvastatin Calcium) 10 Mg Tablet, 1 TAB PO DAILY for cholesterol, #30 Ref 5 (Reported) Entered as Reported by: ELZBIETA BROWNE RN on 11/25/18101 Last Action: Continued on 11/26/18849 by ANGELITO SIMON Ipratropium [place] (Ipratropium [place]) 0.2 Mg/1 Ml Solution, 1 VIAL NEB QID for COPD, #300 Ref 5 (Reported) Entered as Reported by: ELZBIETA BROWNE RN on 11/25/18101 Last Action: Reviewed on 11/26/18849 by ANGELITO SIMON Ipratropium/Albuterol Sulfate (Combivent Respimat Inhal) 4 Gm Aer.w.adap, Unknown Dose IH QID for copd, (Reported) 2 puffs 4 times per day Entered as Reported by: ELZBIETA BROWNE RN on 11/24/182209 Last Taken: UNKNOWN on Unknown Date & Time Last Action: Reviewed on 849 by ANGELITO SIMON Multivitamin (Multivitamins) 1 Each Tablet, 1 TAB PO DAILY for ., #90 Ref 3 ( Reported) Entered as Reported by: ELZBIETA BROWNE RN on 11/25/18101 Last Action: Converted on 11/26/18849 by ANGELITO SIMON Pantoprazole Sodium (Protonix) 20 Mg Tablet.dr, 40 MG PO DAILY for ., (Reported) Entered as Reported by: ELZBIETA BROWNE RN on 11/25/18101 Last Action: HELD on 11/26/18849 by ANGELITO SIMON Vitamin B Complex (Vitamin B Complex) 1 Each Capsule, 1 EACH PO DAILY for ., ( Reported) Entered as Reported by: ELZBIETA BROWNE RN on 11/25/18101 Last Action: Converted on 11/26/18849 by ANGELITO LEONG MD Nov 27, 2018 08:58
== END 2018-11-26 20:29 | disposition short-term general hospital (02) | DRG 871 ==
LOC: ER 14:45 → 5 NORTH 17:15
PROVIDERS: ADMIT Internal Medicine; ATTEND Internal Medicine
DX: A41.9 Sepsis, unspecified organism (principal); J18.9 Pneumonia, unspecified organism; E43 Unspecified severe protein-calorie malnutrition; Z68.1 Body mass index [BMI] 19.9 or less, adult; C34.12 Malignant neoplasm of upper lobe, left bronchus or lung; R64 Cachexia; Z66 Do not resuscitate; E83.52 Hypercalcemia; F17.200 Nicotine dependence, unspecified, uncomplicated; C32.9 Malignant neoplasm of larynx, unspecified; E78.5 Hyperlipidemia, unspecified; J43.9 Emphysema, unspecified; R13.10 Dysphagia, unspecified; D69.6 Thrombocytopenia, unspecified; Z51.5 Encounter for palliative care; Z99.81 Dependence on supplemental oxygen; Z80.0 Family history of malignant neoplasm of digestive organs; Z79.899 Other long term (current) drug therapy; Z87.11 Personal history of peptic ulcer disease
CPT/HCPCS: 36415; 70491; 71045; 71275; 78306; 80053; 83605; 83735; 84145; 84484; 85007; 85025; 87040; 93005; 94640; 94760; 96361; 96365; 96366; 96374; A9503; C9113; J1940; J1956; J3370; J7030; J7620; J7626; Q9967; 97530; 97535; 99285-25